=== PATIENT | female | born 1940 | race Caucasian/White ===

== ENCOUNTER 2016-04-12 12:51 | Inpatient (IN) | payer MEDICARE, MEDICAID ==
[~2016-04-12] VITALS: Ht 157.5 cm; Wt 58.4 kg
[~2016-04-12 12:51] MED LIST: CALC-24 OR; CYCL1TAB18 OR; DEXL60CA3 PO; LACT10SO44 PO; METO-5 PO; NITR-48 PO; OXY20CRT PO; OXY5T PO; SPIR100T PO; URSO300C7 PO
[2016-04-12] MEDS ORDERED: SODIUM CHLORIDE 0.9% 1,000 ML IVB ONE (13:25)
[2016-04-12 14:13] LABS: Basophils # (auto) 0.1 uL; Basophils % (auto) 0.6 % (0.0-2.0); Eosinophils # (auto) 0.2 uL; Eosinophils % (auto) 1.5 % (0.0-7.0); Hematocrit 34.8 % (36.0-46.0); Hemoglobin 11.3 g/dL (12.2-16.2); Lymphocytes % (auto) 7.9 % (10.0-50.0); Mean Corpuscular Hemoglobin 29.1 pg (28.0-32.0); Mean Corpuscular Hgb Conc. 32.3 g/dL (32.0-36.0); Mean Corpuscular Volume 90.1 fL (80.0-100.0); Mean Platelet Volume 9.3 fL (7.4-10.4); Monocytes # (auto) 1.2 uL; Neutrophils # (auto) 10.4 uL; Platelet Count (auto) 203 10^3/uL (140-450); Red Cell Distribution Width 15.1 % (11.6-16.0); White Blood Cell 12.9 10^3/uL (4.4-10.8)
[2016-04-12 14:23] LABS: Partial Thromboplastin Time 24.5 sec (22.64-33.71); Prothrombin Time 10.3 sec (9.37-12.3)
[2016-04-12 14:29] LABS: Urine RBC None Seen /hpf (0 - 4)
[2016-04-12 14:38] LABS: Urine Bilirubin Negative (Negative); Urine Blood Negative /uL (Negative); Urine Color Yellow (Yellow); Urine Glucose Normal (Normal); Urine Ketone Negative (Negative); Urine Nitrite Negative (Negative); Urine Urobilinogen Normal (Negative); Urine pH 5.5 (5.0-8.0)
[2016-04-12 15:13] LABS: Albumin 2.9 g/dL (3.4-5.0); BUN/Creatinine Ratio 28.2; Bilirubin, Total 0.6 mg/dL (0.2-1.0); Calcium 8.2 mg/dL (8.5-10.1); Magnesium 2.1 mg/dL (1.6-2.6); Potassium 3.7 mmol/L (3.5-5.1); Total Protein 6.2 g/dL (6.4-8.2)
[2016-04-12] MEDS ORDERED: KETOROLAC TROMETH 30 MG/ML 1ML VIAL IV ONE (16:00)
[2016-04-12] MEDS ORDERED: AZITHROMYCIN 500MG/D5W 250ML 250 ML IV ONE (16:00)
[2016-04-12 16:22] LABS: B-Type Natriuretic Peptide 56.92 pg/mL (0-100)
[2016-04-12] MEDS ORDERED: ALBUTEROL SULF 2.5 MG/0.5ML(0.5%) NEB SOLN NEB PRN (16:45)
[2016-04-12] MEDS ORDERED: HYDROcodone-ACET 5/325MG TAB PO PRN (16:45)
[2016-04-12] MEDS ORDERED: NITROGLYCERIN 0.4 MG SL TAB SL PRN (16:45)
[2016-04-12] MEDS ORDERED: ACETAMINOPHEN 500 MG TAB PO PRN (16:45)
[2016-04-12] MEDS ORDERED: OSELTAMIVIR 75 MG CAP PO ONE (16:45)
[2016-04-12] MEDS ORDERED: MORPHINE SULF INJ 2 MG/ML SYRINGE 1ML IV PRN ×2 (16:45→16:46)
[2016-04-12] MEDS ORDERED: PROMETHAZINE HCL 25 MG/ML 1ML IV PRN (16:45)
[2016-04-12] MEDS ORDERED: LORazepam 0.5 MG TAB PO PRN (16:45)
[2016-04-12] MEDS: SODIUM CHLORIDE 0.9% 1,000 ML IV SCH (16:52)
[2016-04-12] MEDS ORDERED: OSELTAMIVIR 30 MG CAP PO ONE (17:00)
[2016-04-12] MEDS ORDERED: VANCOMYCIN PER PHARMACY 0 MG IV SCH (17:15)
[2016-04-12] MEDS ORDERED: VANCOMYCIN 1GM/250ML D5W 250 ML IV ONE (17:15)
[2016-04-12] MEDS ORDERED: IOHEXOL 350 MG/ML 100ML IJ ONE (17:31)
[2016-04-12] MEDS: VANCOMYCIN 1GM/250ML D5W 250 ML IV SCH (18:34)
[2016-04-12] MEDS ORDERED: OXYCODONE HCL 5MG TAB PO PRN (19:15)
[2016-04-12] MEDS: ALBUTEROL SULF 2.5 MG/0.5ML(0.5%) NEB SOLN NEB SCH (19:30)
[2016-04-12] MEDS: IPRATROPIUM BROM 0.5 MG/2.5ML INH SOL NEB SCH (19:30)
[2016-04-12 21:10] VITALS: BP 117/94
[2016-04-12 22:00] VITALS: BP 117/94
[2016-04-12] MEDS: MORPHINE SULF 30 mg ER tab PO SCH (22:36)
[2016-04-13] MEDS: HYDROmorphone HCL 2 MG/ML VL IV PRN ×4 (00:07→21:15)
[2016-04-13 03:07] VITALS: BP 123/102
[2016-04-13] MEDS: SODIUM CHLORIDE 0.9% 1,000 ML IV SCH ×2 (05:38→18:55)
[2016-04-13] MEDS: MORPHINE SULF 30 mg ER tab PO SCH ×3 (05:45→21:58)
[2016-04-13 05:49] VITALS: BP 117/63
[2016-04-13] MEDS ORDERED: OSELTAMIVIR 30 MG CAP PO SCH (06:00)
[2016-04-13 06:28] LABS: Basophils # (auto) 0 uL; Basophils % (auto) 0.4 % (0.0-2.0); Eosinophils # (auto) 0.2 uL; Eosinophils % (auto) 2.3 % (0.0-7.0); Hematocrit 31.4 % (36.0-46.0); Hemoglobin 10.2 g/dL (12.2-16.2); Lymphocytes % (auto) 12.8 % (10.0-50.0); Mean Corpuscular Hgb Conc. 32.5 g/dL (32.0-36.0); Mean Corpuscular Volume 92.4 fL (80.0-100.0); Mean Platelet Volume 9.8 fL (7.4-10.4); Monocytes # (auto) 0.6 uL; Monocytes % (auto) 8.2 % (0.0-12.0); Neutrophils # (auto) 5.9 uL; Neutrophils % (auto) 76.3 % (37.0-80.0); Platelet Count (auto) 172 10^3/uL (140-450); Red Cell Distribution Width 15.3 % (11.6-16.0); White Blood Cell 7.7 10^3/uL (4.4-10.8)
[2016-04-13] MEDS: IPRATROPIUM BROM 0.5 MG/2.5ML INH SOL NEB SCH ×4 (06:38→18:22)
[2016-04-13] MEDS: ALBUTEROL SULF 2.5 MG/0.5ML(0.5%) NEB SOLN NEB SCH ×4 (06:38→18:22)
[2016-04-13 06:57] LABS: Albumin 2.3 g/dL (3.4-5.0); BUN/Creatinine Ratio 25.4; Bilirubin, Total 0.6 mg/dL (0.2-1.0); Calcium 7.8 mg/dL (8.5-10.1); Potassium 3.7 mmol/L (3.5-5.1); Total Protein 5.3 g/dL (6.4-8.2)
[2016-04-13 09:14] VITALS: BP 125/64
[2016-04-13] MEDS ORDERED: AZITHROMYCIN 500MG/D5W 250ML 250 ML IV SCH (10:00)
[2016-04-13 12:21] VITALS: BP 109/63
[2016-04-13] MEDS: OSELTAMIVIR 30MG/2ML ORAL SUSP PO SCH ×2 (13:51→21:58)
[2016-04-13 17:25] VITALS: BP 123/66
[2016-04-13] MEDS: VANCOMYCIN 1GM/250ML D5W 250 ML IV SCH (17:37)
[2016-04-13 21:56] VITALS: BP 132/64
[2016-04-14] MEDS: IPRATROPIUM BROM 0.5 MG/2.5ML INH SOL NEB SCH ×2 (00:15→06:07)
[2016-04-14] MEDS: ALBUTEROL SULF 2.5 MG/0.5ML(0.5%) NEB SOLN NEB SCH ×3 (00:16→11:15)
[2016-04-14] MEDS: HYDROmorphone HCL 2 MG/ML VL IV PRN ×2 (04:17→10:39)
[2016-04-14 05:00] VITALS: BP 116/68
[2016-04-14] MEDS: MORPHINE SULF 30 mg ER tab PO SCH (06:24)
[2016-04-14 09:00] VITALS: BP 130/79
[2016-04-14] MEDS: SODIUM CHLORIDE 0.9% 1,000 ML IV SCH (09:43)
[2016-04-14] MEDS ORDERED: OSELTAMIVIR 30 MG CAP PO SCH (10:00)
[2016-04-14] MEDS ORDERED: AZITHROMYCIN 250 MG TAB PO SCH (10:00)
[2016-04-14] MEDS ORDERED: OSELTAMIVIR 75 MG CAP PO SCH (10:00)
[2016-04-14 12:16] VITALS: BP 136/75
== END 2016-04-14 14:15 | disposition home or self-care (01) | DRG 871 ==
LOC: EDBD 12:51 → ER 13:01 → TELE 13:02 → TELE-CENTR 21:10
PROVIDERS: ADMIT Internal Medicine; ATTEND Internal Medicine Pulmonary Disease
DX: A41.9 Sepsis, unspecified organism (principal); J18.9 Pneumonia, unspecified organism; J44.0 Chronic obstructive pulmonary disease with (acute) lower respiratory infection; C34.90 Malignant neoplasm of unspecified part of unspecified bronchus or lung; F11.20 Opioid dependence, uncomplicated; J44.1 Chronic obstructive pulmonary disease with (acute) exacerbation; J98.11 Atelectasis; L03.115 Cellulitis of right lower limb; Z82.61 Family history of arthritis; I50.9 Heart failure, unspecified; D50.9 Iron deficiency anemia, unspecified; D53.9 Nutritional anemia, unspecified; D63.8 Anemia in other chronic diseases classified elsewhere; E03.9 Hypothyroidism, unspecified; F32.9 Major depressive disorder, single episode, unspecified; F41.9 Anxiety disorder, unspecified; G89.29 Other chronic pain; J20.9 Acute bronchitis, unspecified; M10.9 Gout, unspecified; I11.0 Hypertensive heart disease with heart failure; M19.90 Unspecified osteoarthritis, unspecified site; M54.9 Dorsalgia, unspecified; M34.9 Systemic sclerosis, unspecified; M41.9 Scoliosis, unspecified; M48.06 Spinal stenosis, lumbar region; Z80.3 Family history of malignant neoplasm of breast; Z82.3 Family history of stroke; Z82.49 Family history of ischemic heart disease and other diseases of the circulatory system; Z86.14 Personal history of Methicillin resistant Staphylococcus aureus infection; Z86.711 Personal history of pulmonary embolism; Z88.6 Allergy status to analgesic agent; Z88.1 Allergy status to other antibiotic agents; Z88.5 Allergy status to narcotic agent; Z88.8 Allergy status to other drugs, medicaments and biological substances; Z90.49 Acquired absence of other specified parts of digestive tract; Z90.710 Acquired absence of both cervix and uterus; Z98.890 Other specified postprocedural states
CPT/HCPCS: 36415; 51702; 71010; 71250; 71275; 72128; 72131; 80053; 81001; 82550; 82962; 83605; 83735; 83880; 84484; 85025; 85049; 85379; 85610; 85652; 85730; 86141; 87040; 87081; 87086; 93005; 94640; 96361; 96365; 96366; 96375; G0434; G9035; J1885

== ENCOUNTER 2016-04-16 10:33 | Inpatient (IN) | payer MEDICARE, MEDICAID ==
[~2016-04-16] VITALS: Ht 152.4 cm; Wt 55.9 kg
[~2016-04-16 10:33] MED LIST changes: -NITR-48 PO; -OXY20CRT PO
[2016-04-16] MEDS ORDERED: SODIUM CHLORIDE 0.9% 1,000 ML IVB ONE (11:12)
[2016-04-16] MEDS ORDERED: ONDANSETRON HCL 4 MG/2 ML VIAL IV ONE (11:15)
[2016-04-16 11:48] LABS: Hematocrit 37.6 % (36.0-46.0)
[2016-04-16 11:51] LABS: Basophils # (auto) 0 uL; Basophils % (auto) 0.2 % (0.0-2.0); Eosinophils # (auto) 0.1 uL; Eosinophils % (auto) 0.9 % (0.0-7.0); Hemoglobin 12.1 g/dL (12.2-16.2); Lymphocytes # (auto) 0.5 uL; Lymphocytes % (auto) 3.8 % (10.0-50.0); Mean Corpuscular Hemoglobin 29.3 pg (28.0-32.0); Mean Corpuscular Hgb Conc. 32.1 g/dL (32.0-36.0); Mean Corpuscular Volume 91.1 fL (80.0-100.0); Mean Platelet Volume 9.7 fL (7.4-10.4); Monocytes # (auto) 0.9 uL; Monocytes % (auto) 7.6 % (0.0-12.0); Neutrophils # (auto) 10.9 uL; Neutrophils % (auto) 87.5 % (37.0-80.0); Platelet Count (auto) 227 10^3/uL (140-450); Red Cell Distribution Width 15.3 % (11.6-16.0); White Blood Cell 12.4 10^3/uL (4.4-10.8)
[2016-04-16 12:00] LABS: Amylase 23 U/L (25-115)
[2016-04-16 12:03] LABS: Albumin 3.1 g/dL (3.4-5.0); BUN/Creatinine Ratio 18.2; Bilirubin, Total 0.4 mg/dL (0.2-1.0); Calcium 8.5 mg/dL (8.5-10.1); Potassium 4.3 mmol/L (3.5-5.1); Total Protein 6.2 g/dL (6.4-8.2)
[2016-04-16 12:08] LABS: INR 1.04 (0.9-1.15); Partial Thromboplastin Time 21.2 sec (22.64-33.71); Prothrombin Time 10.7 sec (9.37-12.3)
[2016-04-16] MEDS ORDERED: OXYCODONE HCL 5MG TAB PO PRN (13:30)
[2016-04-16] MEDS ORDERED: PANTOPRAZOLE SODIUM 40 MG/10 ML VIAL IV ONE (13:30)
[2016-04-16] MEDS: oxyCODONE ER 20 MG TAB PO SCH ×2 (13:56→21:35)
[2016-04-16 16:24] VITALS: BP 123/79
[2016-04-16] MEDS: LACTULOSE 20Gm/30ML SOLN PO SCH (18:00)
[2016-04-16 22:00] VITALS: BP 119/79
[2016-04-16 22:20] LABS: Urine Bilirubin Negative (Negative); Urine Blood Negative /uL (Negative); Urine Color Yellow (Yellow); Urine Glucose Normal (Normal); Urine Ketone TRACE (Negative); Urine RBC 9 /hpf (0 - 4); Urine Squamous Epithelial Cell FEW /hpf (<5); Urine Urobilinogen Normal (Negative); Urine WBC Clumps PRESENT /hpf (None Seen); Urine pH 6.5 (5.0-8.0)
[2016-04-16 22:22] LABS: Urine Nitrite POSITIVE (Negative)
[2016-04-17 05:30] VITALS: BP 121/67
[2016-04-17] MEDS: oxyCODONE ER 20 MG TAB PO SCH (05:37)
[2016-04-17] MEDS: LACTULOSE 20Gm/30ML SOLN PO SCH ×3 (05:42→12:00)
[2016-04-17 05:54] LABS: Basophils # (auto) 0 uL; Basophils % (auto) 0.3 % (0.0-2.0); Eosinophils # (auto) 0.3 uL; Eosinophils % (auto) 3.9 % (0.0-7.0); Hematocrit 31.2 % (36.0-46.0); Hemoglobin 10.1 g/dL (12.2-16.2); Lymphocytes # (auto) 1.1 uL; Lymphocytes % (auto) 16.8 % (10.0-50.0); Mean Corpuscular Hemoglobin 29.3 pg (28.0-32.0); Mean Corpuscular Hgb Conc. 32.4 g/dL (32.0-36.0); Mean Corpuscular Volume 90.4 fL (80.0-100.0); Mean Platelet Volume 9.2 fL (7.4-10.4); Monocytes # (auto) 0.7 uL; Monocytes % (auto) 10.5 % (0.0-12.0); Neutrophils # (auto) 4.4 uL; Neutrophils % (auto) 68.5 % (37.0-80.0); Platelet Count (auto) 196 10^3/uL (140-450); Red Cell Distribution Width 15.1 % (11.6-16.0); White Blood Cell 6.4 10^3/uL (4.4-10.8)
[2016-04-17 09:00] VITALS: BP 152/63
[2016-04-17 09:17] VITALS: BP 124/73
[2016-04-17] MEDS ORDERED: PANTOPRAZOLE SODIUM 40 MG/10 ML VIAL IV SCH (10:00)
[2016-04-17] MEDS ORDERED: AZITHROMYCIN 250 MG TAB PO SCH (10:00)
== END 2016-04-17 13:15 | disposition home or self-care (01) | DRG 389 ==
LOC: ER 10:40 → OVERFLOW 10:41 → WEST WING 14:44
PROVIDERS: ADMIT Internal Medicine; ATTEND Internal Medicine
DX: K56.41 Fecal impaction (principal); I50.42 Chronic combined systolic (congestive) and diastolic (congestive) heart failure; F11.20 Opioid dependence, uncomplicated; N39.0 Urinary tract infection, site not specified; I11.0 Hypertensive heart disease with heart failure; F41.9 Anxiety disorder, unspecified; G89.29 Other chronic pain; I48.0 Paroxysmal atrial fibrillation; K74.60 Unspecified cirrhosis of liver; M19.90 Unspecified osteoarthritis, unspecified site; F32.9 Major depressive disorder, single episode, unspecified; M48.06 Spinal stenosis, lumbar region; M54.9 Dorsalgia, unspecified; Z88.1 Allergy status to other antibiotic agents; Z88.5 Allergy status to narcotic agent; Z88.8 Allergy status to other drugs, medicaments and biological substances; Z80.9 Family history of malignant neoplasm, unspecified; Z86.711 Personal history of pulmonary embolism; Z90.49 Acquired absence of other specified parts of digestive tract; Z86.718 Personal history of other venous thrombosis and embolism; Z87.01 Personal history of pneumonia (recurrent); Z98.890 Other specified postprocedural states; Z90.710 Acquired absence of both cervix and uterus
CPT/HCPCS: 36415; 71020; 74176; 80053; 81001; 82140; 82150; 83605; 83690; 83735; 84443; 85025; 85049; 85610; 85730; 87040; 87081; 93005; 94761; 96361; 96374; 96375; C9113; J2405

== ENCOUNTER 2016-08-11 07:34 | Day surgery (SDC) | payer MEDICARE, MEDICAID ==
[2016-08-08 16:43] LABS: Basophils % (auto) 1.2 % (0.0-2.0); Eosinophils % (auto) 4.6 % (0.0-7.0); Hematocrit 36.3 % (36.0-46.0); Hemoglobin 11.7 g/dL (12.2-16.2); Lymphocytes % (auto) 22.1 % (10.0-50.0); Mean Corpuscular Hemoglobin 29.3 pg (28.0-32.0); Mean Corpuscular Hgb Conc. 32.1 g/dL (32.0-36.0); Mean Corpuscular Volume 91.1 fL (80.0-100.0); Monocytes % (auto) 10.9 % (0.0-12.0); Neutrophils % (auto) 61.2 % (37.0-80.0); Red Cell Distribution Width 17.8 % (11.6-16.0); White Blood Cell 5.4 10^3/uL (4.4-10.8)
[2016-08-08 16:44] LABS: INR 0.92 (0.9-1.15); Partial Thromboplastin Time 21.1 sec (22.64-33.71); Platelet Count (auto) 230 10^3/uL (140-450); Prothrombin Time 9.9 sec (9.37-12.3)
[2016-08-08 16:45] LABS: Albumin 3.2 g/dL (3.4-5.0); BUN/Creatinine Ratio 23.7; Bilirubin, Total 0.2 mg/dL (0.2-1.0); Calcium 9.1 mg/dL (8.5-10.1); Potassium 4.1 mmol/L (3.5-5.1); Total Protein 6.9 g/dL (6.4-8.2)
[~2016-08-11] VITALS: Ht 152.4 cm; Wt 54.4 kg
[~2016-08-11 07:34] MED LIST changes: +ALB5IS NEB; +ATEN-60 PO; -CALC-24 OR; +CALC1TAB64 PO; +CEFU500T43 PO; +ESZO3TAB53 PO; +FURO80TA PO; -METO-5 PO; +OXYC60TA8 PO; +SACC250C PO; -URSO300C7 PO; +URSO300C9 PO
[2016-08-11] MEDS ORDERED: MIDAZOLAM HCL 1MG/1ML-2 ML VIAL ONE (08:22)
[2016-08-11] MEDS ORDERED: PROPOFOL 10 MG/ML 20 ML IV ONE (08:22)
[2016-08-11] MEDS ORDERED: DEXAMETHASONE SOD PHOS 10MG/1ML VIAL INJ ONE (08:22)
[2016-08-11] MEDS ORDERED: fentaNYL CITRATE 100 MCG/2 ML VL ONE (08:22)
[2016-08-11] MEDS ORDERED: MEPERIDINE HCL (50 MG/ML) 1 ML VIAL ONE (08:23)
[2016-08-11] MEDS ORDERED: MORPHINE SULF INJ 2 MG/ML SYRINGE 1ML IV PRN (09:15)
[2016-08-11] MEDS ORDERED: ONDANSETRON HCL 4 MG/2 ML VIAL IV ONE (09:15)
[2016-08-11] MEDS ORDERED: KETOROLAC TROMETH 30 MG/ML 1ML VIAL IV ONE (09:15)
[2016-08-11] MEDS ORDERED: hydrALAZINE HCL 20 MG/ML VL IV PRN (09:15)
[2016-08-11] MEDS ORDERED: MIDAZOLAM HCL 1MG/1ML-2 ML VIAL IV PRN (09:15)
[2016-08-11] MEDS ORDERED: ePHEDrine SULFATE 50 MG/ML AMP IV PRN (09:15)
[2016-08-11] MEDS ORDERED: HYDROmorphone HCL 2 MG/ML VL IV PRN (09:15)
[2016-08-11] MEDS ORDERED: LABETALOL HCL 5 MG/ML 4ML SYRINGE IV PRN (09:15)
[2016-08-11 09:59] VITALS: BP 148/76
[2016-09-23] MEDS ORDERED: SULF-92 PO (13:39)
[2016-09-23] MEDS ORDERED: SACC250C PO (13:39)
[2016-09-23] MEDS ORDERED: MET500T PO (13:39)
== END 2016-08-11 10:03 | disposition home or self-care (01) ==
LOC: GI 07:34
PROVIDERS: ATTEND Internal Medicine Gastroenterology
DX: K44.9 Diaphragmatic hernia without obstruction or gangrene (principal); T18.3XXA Foreign body in small intestine, initial encounter; I50.9 Heart failure, unspecified; J44.9 Chronic obstructive pulmonary disease, unspecified; I26.99 Other pulmonary embolism without acute cor pulmonale; Z90.710 Acquired absence of both cervix and uterus; F41.9 Anxiety disorder, unspecified
CPT/HCPCS: 36415; 43235; 80053; 82105; 85025; 85610; 85730; J1100; J2175; J2250; J2704; J3010; J7030

== ENCOUNTER 2016-09-19 07:45 | Inpatient (IN) | payer MEDICARE, MEDICAID ==
[~2016-09-19] VITALS: Ht 157.5 cm; Wt 62.1 kg
[2016-09-19 08:29] LABS: CONDITION Y; Hematocrit 37.5 % (36.0-46.0); Hemoglobin 12.6 g/dL (12.2-16.2); Mean Corpuscular Hemoglobin 30.5 pg (28.0-32.0); Mean Corpuscular Hgb Conc. 33.7 g/dL (32.0-36.0); Mean Corpuscular Volume 90.5 fL (80.0-100.0); Platelet Count (auto) 237 10^3/uL (140-450); Red Cell Distribution Width 15.3 % (11.6-16.0); SUSPECT SEE PRINTOUT; White Blood Cell 20.3 10^3/uL (4.4-10.8)
[2016-09-19] MEDS ORDERED: SODIUM CHLORIDE 0.9% 500 ML IVB ONE (08:29)
[2016-09-19 08:37] LABS: Myelocytes % 0; Promyelocytes % 0; Reactive Lymphocytes 0
[2016-09-19 08:53] LABS: BUN/Creatinine Ratio 23.9; Bilirubin, Total 0.7 mg/dL (0.2-1.0); Calcium 8.9 mg/dL (8.5-10.1); Potassium 3.7 mmol/L (3.5-5.1); Total Protein 6.7 g/dL (6.4-8.2)
[2016-09-19 08:57] LABS: Amylase 15 U/L (25-115)
[2016-09-19 10:41] LABS: Metamyelocytes % 1; Platelet Estimate Adequate
[2016-09-19] MEDS ORDERED: MORPHINE SULF INJ 2 MG/ML SYRINGE 1ML IV PRN ×2 (11:45)
[2016-09-19] MEDS ORDERED: HYDROcodone-ACET 5/325MG TAB PO PRN (11:45)
[2016-09-19] MEDS ORDERED: TEMAZEPAM 15 MG CAP PO PRN (11:45)
[2016-09-19] MEDS ORDERED: LORazepam 0.5 MG TAB PO PRN (11:45)
[2016-09-19] MEDS ORDERED: NITROGLYCERIN 0.4 MG SL TAB SL PRN (11:45)
[2016-09-19] MEDS ORDERED: ACETAMINOPHEN 500 MG TAB PO PRN (11:45)
[2016-09-19] MEDS: SODIUM CHLORIDE 0.9% 1,000 ML IV SCH ×2 (12:00→21:58)
[2016-09-19] MEDS: ALBUTEROL SULF 2.5 MG/0.5ML(0.5%) NEB SOLN NEB SCH ×2 (12:00→18:00)
[2016-09-19] MEDS: metroNIDAZOLE 500MG/100ML 100 ML IV SCH ×2 (12:11→18:28)
[2016-09-19] MEDS ORDERED: ATENOLOL 25 MG TAB PO ONE (12:15)
[2016-09-19] MEDS: ENOXAPARIN SOD 40 MG/0.4 ML SYRINGE SC SCH (12:32)
[2016-09-19] MEDS: PROMETHAZINE HCL 25 MG/ML 1ML IV PRN (12:33)
[2016-09-19] MEDS ORDERED: HYDROmorphone HCL 2 MG/ML VL IV PRN (12:45)
[2016-09-19] MEDS: ERTAPENEM SOD INJ 1 GM in SODIUM CHL 0.9% 50 ML IV SCH (13:11)
[2016-09-19] MEDS ORDERED: OXYCODONE HCL 60 MG PO SCH (14:00)
[2016-09-19] MEDS: oxyCODONE ER 20 MG TAB PO SCH ×2 (14:00→22:00)
[2016-09-19 17:52] VITALS: BP 131/66
[2016-09-19] MEDS: URSODIOL 300 MG PO SCH (18:00)
[2016-09-19] MEDS: OXYCODONE HCL 5MG TAB PO PRN (18:29)
[2016-09-19] MEDS: ATENOLOL 25 MG TAB PO SCH (21:57)
[2016-09-19 22:00] VITALS: BP 156/76
[2016-09-19] MEDS: LACTULOSE 20Gm/30ML SOLN PO SCH (22:00)
[2016-09-19] MEDS ORDERED: ESZOPICLONE PO SCH (22:00)
[2016-09-19] MEDS ORDERED: ATENOLOL 25 MG TAB PO SCH (22:00)
[2016-09-20] MEDS: metroNIDAZOLE 500MG/100ML 100 ML IV SCH ×4 (00:45→19:09)
[2016-09-20 05:00] VITALS: BP 146/81
[2016-09-20] MEDS: oxyCODONE ER 20 MG TAB PO SCH ×3 (05:05→22:04)
[2016-09-20 06:23] LABS: Basophils # (auto) 0 uL; CONDITION Y; Eosinophils # (auto) 0 uL; Eosinophils % (auto) 0.1 % (0.0-7.0); Hematocrit 34.9 % (36.0-46.0); Hemoglobin 11.9 g/dL (12.2-16.2); Lymphocytes # (auto) 0.7 uL; Lymphocytes % (auto) 4.8 % (10.0-50.0); Mean Corpuscular Hemoglobin 31.5 pg (28.0-32.0); Mean Corpuscular Hgb Conc. 34.1 g/dL (32.0-36.0); Mean Corpuscular Volume 92.2 fL (80.0-100.0); Mean Platelet Volume 9.2 fL (7.4-10.4); Monocytes # (auto) 1.2 uL; Monocytes % (auto) 8.3 % (0.0-12.0); Neutrophils # (auto) 12.2 uL; Neutrophils % (auto) 86.8 % (37.0-80.0); Platelet Count (auto) 198 10^3/uL (140-450); Red Cell Distribution Width 15.4 % (11.6-16.0)
[2016-09-20 06:39] LABS: Albumin 2.3 g/dL (3.4-5.0); BUN/Creatinine Ratio 24.5; Calcium 8.1 mg/dL (8.5-10.1); Potassium 3.8 mmol/L (3.5-5.1)
[2016-09-20 06:41] LABS: Bilirubin, Total 0.4 mg/dL (0.2-1.0); Total Protein 5.8 g/dL (6.4-8.2)
[2016-09-20] MEDS: SODIUM CHLORIDE 0.9% 1,000 ML IV SCH ×2 (07:55→17:35)
[2016-09-20] MEDS: ALBUTEROL SULF 2.5 MG/0.5ML(0.5%) NEB SOLN NEB SCH ×4 (08:32→19:43)
[2016-09-20 09:00] VITALS: BP 108/59
[2016-09-20 09:21] VITALS: BP 146/81
[2016-09-20] MEDS: CALCIUM W/VIT D (600MG/400IU) TAB PO SCH (09:21)
[2016-09-20] MEDS: LACTULOSE 20Gm/30ML SOLN PO SCH ×2 (09:21→22:04)
[2016-09-20] MEDS: PANTOPRAZOLE 40 MG TAB PO SCH (09:22)
[2016-09-20] MEDS: ENOXAPARIN SOD 40 MG/0.4 ML SYRINGE SC SCH (09:23)
[2016-09-20] MEDS: ATENOLOL 25 MG TAB PO SCH ×2 (09:23→21:59)
[2016-09-20] MEDS ORDERED: PATIENTS OWN MEDICATION (Dexlansoprazole (Dexilant) 60 MG) PO SCH (10:00)
[2016-09-20] MEDS: ERTAPENEM SOD INJ 1 GM in SODIUM CHL 0.9% 50 ML IV SCH (10:03)
[2016-09-20 13:00] VITALS: BP 107/61
[2016-09-20 17:00] VITALS: BP 129/59
[2016-09-20] MEDS: URSODIOL 300 MG PO SCH (18:00)
[2016-09-20 22:00] VITALS: BP 92/52
[2016-09-21] MEDS: metroNIDAZOLE 500MG/100ML 100 ML IV SCH ×5 (00:01→23:46)
[2016-09-21] MEDS: ALBUTEROL SULF 2.5 MG/0.5ML(0.5%) NEB SOLN NEB SCH ×4 (01:10→20:00)
[2016-09-21 06:17] VITALS: BP 110/67
[2016-09-21 07:31] VITALS: BP 133/76
[2016-09-21] MEDS: oxyCODONE ER 20 MG TAB PO SCH ×3 (07:44→21:28)
[2016-09-21] MEDS: PROMETHAZINE HCL 25 MG/ML 1ML IV PRN (07:55)
[2016-09-21 09:00] VITALS: BP 133/76
[2016-09-21] MEDS: LACTULOSE 20Gm/30ML SOLN PO SCH ×2 (10:00→21:28)
[2016-09-21] MEDS: ERTAPENEM SOD INJ 1 GM in SODIUM CHL 0.9% 50 ML IV SCH (10:30)
[2016-09-21] MEDS: PANTOPRAZOLE 40 MG TAB PO SCH (10:31)
[2016-09-21] MEDS: CALCIUM W/VIT D (600MG/400IU) TAB PO SCH (10:31)
[2016-09-21] MEDS: ENOXAPARIN SOD 40 MG/0.4 ML SYRINGE SC SCH (10:31)
[2016-09-21] MEDS: ATENOLOL 25 MG TAB PO SCH ×2 (10:32→21:28)
[2016-09-21] MEDS: SODIUM CHLORIDE 0.9% 1,000 ML IV SCH ×2 (12:04→21:28)
[2016-09-21 13:00] VITALS: BP 116/66
[2016-09-21 17:00] VITALS: BP 98/75
[2016-09-21] MEDS: URSODIOL 300 MG PO SCH (17:17)
[2016-09-21 21:04] VITALS: BP 137/91
[2016-09-22] MEDS ORDERED: EZ-GAS II GRANULES (RADIOLOGY USE) PO ONE (00:23)
[2016-09-22] MEDS: ALBUTEROL SULF 2.5 MG/0.5ML(0.5%) NEB SOLN NEB SCH ×4 (01:21→19:57)
[2016-09-22] MEDS: OXYCODONE HCL 5MG TAB PO PRN (02:39)
[2016-09-22 05:00] VITALS: BP 139/74
[2016-09-22 05:12] LABS: Urine Bilirubin Negative (Negative); Urine Color Yellow (Yellow); Urine Glucose Normal (Normal); Urine Ketone Negative (Negative); Urine Mucus FEW (None Seen); Urine Nitrite Negative (Negative); Urine RBC 13 /hpf (0 - 4); Urine Squamous Epithelial Cell FEW /hpf (<5); Urine Urobilinogen Normal (Negative); Urine pH 5.5 (5.0-8.0)
[2016-09-22 05:13] LABS: Urine Blood 1+ /uL (Negative)
[2016-09-22] MEDS: metroNIDAZOLE 500MG/100ML 100 ML IV SCH ×2 (05:50→12:29)
[2016-09-22] MEDS: oxyCODONE ER 20 MG TAB PO SCH ×3 (06:00→21:51)
[2016-09-22 06:22] LABS: Basophils # (auto) 0 uL; Basophils % (auto) 0.3 % (0.0-2.0); CONDITION Y; Eosinophils # (auto) 0.1 uL; Eosinophils % (auto) 1.4 % (0.0-7.0); Hematocrit 33.4 % (36.0-46.0); Lymphocytes # (auto) 0.6 uL; Lymphocytes % (auto) 10.4 % (10.0-50.0); Mean Corpuscular Hemoglobin 30.6 pg (28.0-32.0); Mean Corpuscular Volume 92.7 fL (80.0-100.0); Monocytes # (auto) 0.4 uL; Monocytes % (auto) 8.2 % (0.0-12.0); Neutrophils # (auto) 4.3 uL; Neutrophils % (auto) 79.7 % (37.0-80.0); Platelet Count (auto) 177 10^3/uL (140-450); Red Cell Distribution Width 15.2 % (11.6-16.0); White Blood Cell 5.4 10^3/uL (4.4-10.8)
[2016-09-22 08:00] VITALS: BP 135/76
[2016-09-22 09:16] VITALS: BP 135/76
[2016-09-22] MEDS: LACTULOSE 20Gm/30ML SOLN PO SCH ×2 (09:49→21:49)
[2016-09-22] MEDS: PANTOPRAZOLE 40 MG TAB PO SCH (09:50)
[2016-09-22] MEDS: ENOXAPARIN SOD 40 MG/0.4 ML SYRINGE SC SCH (09:50)
[2016-09-22] MEDS: ERTAPENEM SOD INJ 1 GM in SODIUM CHL 0.9% 50 ML IV SCH (09:50)
[2016-09-22] MEDS: CALCIUM W/VIT D (600MG/400IU) TAB PO SCH (09:50)
[2016-09-22] MEDS: ATENOLOL 25 MG TAB PO SCH ×2 (09:51→21:50)
[2016-09-22] MEDS: SODIUM CHLORIDE 0.9% 1,000 ML IV SCH (09:51)
[2016-09-22 13:00] VITALS: BP 130/60
[2016-09-22 17:00] VITALS: BP 130/59
[2016-09-22] MEDS: URSODIOL 300 MG PO SCH (17:20)
[2016-09-22] MEDS: SULFAMETHOX W/TRIMETH(800/160MG) DS TAB PO SCH (21:50)
[2016-09-22] MEDS: metroNIDAZOLE 500 MG TAB PO SCH (21:50)
[2016-09-22 22:00] VITALS: BP 126/67
[2016-09-23 05:00] VITALS: BP 131/70
[2016-09-23] MEDS: metroNIDAZOLE 500 MG TAB PO SCH ×2 (05:37→14:05)
[2016-09-23] MEDS: oxyCODONE ER 20 MG TAB PO SCH ×2 (05:38→14:05)
[2016-09-23 06:07] LABS: Basophils # (auto) 0 uL; Basophils % (auto) 0.7 % (0.0-2.0); CONDITION Y; Eosinophils # (auto) 0.1 uL; Eosinophils % (auto) 2.8 % (0.0-7.0); Hematocrit 33.6 % (36.0-46.0); Hemoglobin 11.5 g/dL (12.2-16.2); Lymphocytes # (auto) 0.6 uL; Lymphocytes % (auto) 14.5 % (10.0-50.0); Mean Corpuscular Hemoglobin 31.2 pg (28.0-32.0); Mean Corpuscular Hgb Conc. 34.1 g/dL (32.0-36.0); Mean Corpuscular Volume 91.3 fL (80.0-100.0); Mean Platelet Volume 9.4 fL (7.4-10.4); Monocytes # (auto) 0.5 uL; Monocytes % (auto) 11.1 % (0.0-12.0); Neutrophils % (auto) 70.9 % (37.0-80.0); Platelet Count (auto) 175 10^3/uL (140-450); Red Cell Distribution Width 15.4 % (11.6-16.0); White Blood Cell 4.3 10^3/uL (4.4-10.8)
[2016-09-23] MEDS: ALBUTEROL SULF 2.5 MG/0.5ML(0.5%) NEB SOLN NEB SCH ×3 (06:12→12:00)
[2016-09-23 06:20] LABS: Calcium 7.8 mg/dL (8.5-10.1); Magnesium 1.9 mg/dL (1.6-2.6)
[2016-09-23 06:23] LABS: BUN/Creatinine Ratio 12.5
[2016-09-23 08:00] VITALS: BP 131/84
[2016-09-23] MEDS ORDERED: URSODIOL 300 MG PO SCH (08:00)
[2016-09-23] MEDS: LACTULOSE 20Gm/30ML SOLN PO SCH (09:23)
[2016-09-23] MEDS: PANTOPRAZOLE 40 MG TAB PO SCH (09:24)
[2016-09-23] MEDS: CALCIUM W/VIT D (600MG/400IU) TAB PO SCH (09:25)
[2016-09-23] MEDS: SULFAMETHOX W/TRIMETH(800/160MG) DS TAB PO SCH (09:25)
[2016-09-23] MEDS: ENOXAPARIN SOD 40 MG/0.4 ML SYRINGE SC SCH (09:26)
[2016-09-23] MEDS: ATENOLOL 25 MG TAB PO SCH (09:26)
[2016-09-23 09:42] VITALS: BP 131/84
[2016-09-23] MEDS ORDERED: SODIUM CHLORIDE 0.9% 1,000 ML IV SCH (11:35)
[2016-09-23] MEDS ORDERED: MAGNESIUM OXIDE 400 MG TAB PO ONE (12:00)
[2016-09-23 13:00] VITALS: BP 125/69
[2016-09-23] MEDS ORDERED: MET500T PO (13:39)
[2016-09-23] MEDS ORDERED: SACC250C PO (13:39)
[2016-09-23] MEDS ORDERED: SULF-92 PO (13:39)
[2016-09-23 15:29] VITALS: BP 125/69
== END 2016-09-23 17:13 | disposition home or self-care (01) | DRG 372 ==
LOC: ER 07:45 → EDBD 07:45 → TELE 07:46 → TELE-WESTW 17:36
PROVIDERS: ADMIT Internal Medicine; ATTEND Internal Medicine
DX: A02.0 Salmonella enteritis (principal); E44.0 Moderate protein-calorie malnutrition; F11.20 Opioid dependence, uncomplicated; I50.32 Chronic diastolic (congestive) heart failure; N39.0 Urinary tract infection, site not specified; E78.5 Hyperlipidemia, unspecified; K21.9 Gastro-esophageal reflux disease without esophagitis; B95.2 Enterococcus as the cause of diseases classified elsewhere; E03.9 Hypothyroidism, unspecified; E86.0 Dehydration; I11.0 Hypertensive heart disease with heart failure; J44.9 Chronic obstructive pulmonary disease, unspecified; M54.9 Dorsalgia, unspecified; M19.90 Unspecified osteoarthritis, unspecified site; G89.29 Other chronic pain; I70.0 Atherosclerosis of aorta; K74.3 Primary biliary cirrhosis; D17.71 Benign lipomatous neoplasm of kidney; M32.9 Systemic lupus erythematosus, unspecified; D64.9 Anemia, unspecified; R73.9 Hyperglycemia, unspecified; Z16.21 Resistance to vancomycin; I95.9 Hypotension, unspecified; M34.9 Systemic sclerosis, unspecified; F41.9 Anxiety disorder, unspecified; K44.9 Diaphragmatic hernia without obstruction or gangrene; K74.60 Unspecified cirrhosis of liver; Z80.3 Family history of malignant neoplasm of breast; Z82.49 Family history of ischemic heart disease and other diseases of the circulatory system; Z86.711 Personal history of pulmonary embolism; Z90.49 Acquired absence of other specified parts of digestive tract; Z86.14 Personal history of Methicillin resistant Staphylococcus aureus infection; Z82.3 Family history of stroke; Z68.25 Body mass index [BMI] 25.0-25.9, adult; Z86.718 Personal history of other venous thrombosis and embolism; Z90.710 Acquired absence of both cervix and uterus; Z90.89 Acquired absence of other organs; Z80.9 Family history of malignant neoplasm, unspecified; Z82.61 Family history of arthritis; Z82.5 Family history of asthma and other chronic lower respiratory diseases; Z88.6 Allergy status to analgesic agent; Z88.1 Allergy status to other antibiotic agents; Z88.5 Allergy status to narcotic agent; Z88.8 Allergy status to other drugs, medicaments and biological substances
CPT/HCPCS: 36415; 71010; 74176; 80048; 80053; 81001; 82140; 82150; 83690; 83735; 85007; 85025; 85027; 85652; 87040; 87045; 87077; 87086; 87088; 87186; 87493; 87899; 93005; 94640; 96374; 96375; 99291; J1335; J3490

== ENCOUNTER → 2016-10-22 | Outpatient (CLI) | payer MEDICARE, MEDICAID ==
[~2016-10-22] MED LIST changes: +MET500T PO; +SULF-92 PO
== END | disposition home or self-care (01) ==
LOC: LAB 13:28
PROVIDERS: ATTEND Internal Medicine Gastroenterology
DX: R19.7 Diarrhea, unspecified (principal)
CPT/HCPCS: 87045; 87493; 87899

== ENCOUNTER 2016-10-27 07:27 | Day surgery (SDC) | payer MEDICARE, MEDICAID ==
[2016-10-23 14:32] LABS: Basophils # (auto) 0.1 uL; Basophils % (auto) 0.8 % (0.0-2.0); CONDITION Y; Eosinophils # (auto) 0.2 uL; Eosinophils % (auto) 1.8 % (0.0-7.0); Hematocrit 37.5 % (36.0-46.0); Hemoglobin 12.5 g/dL (12.2-16.2); Lymphocytes # (auto) 1.9 uL; Lymphocytes % (auto) 18.3 % (10.0-50.0); Mean Corpuscular Hemoglobin 30.9 pg (28.0-32.0); Mean Corpuscular Hgb Conc. 33.3 g/dL (32.0-36.0); Mean Corpuscular Volume 92.8 fL (80.0-100.0); Mean Platelet Volume 8.8 fL (7.4-10.4); Monocytes # (auto) 1.1 uL; Monocytes % (auto) 10.2 % (0.0-12.0); Neutrophils # (auto) 7.1 uL; Neutrophils % (auto) 68.9 % (37.0-80.0); Platelet Count (auto) 301 10^3/uL (140-450); Red Cell Distribution Width 15.6 % (11.6-16.0); White Blood Cell 10.4 10^3/uL (4.4-10.8)
[2016-10-23 14:51] LABS: INR 0.94 (0.9-1.15); Prothrombin Time 10.2 sec (9.37-12.3)
[2016-10-23 14:58] LABS: Urine Bilirubin Negative (Negative); Urine Blood Negative /uL (Negative); Urine Color Yellow (Yellow); Urine Glucose Normal (Normal); Urine Ketone Negative (Negative); Urine Nitrite Negative (Negative); Urine pH 5.5 (5.0-8.0)
[2016-10-23 14:59] LABS: Albumin 3.5 g/dL (3.4-5.0); BUN/Creatinine Ratio 19.7; Bilirubin, Total 0.4 mg/dL (0.2-1.0); Calcium 8.9 mg/dL (8.5-10.1); Potassium 4.2 mmol/L (3.5-5.1); Total Protein 7.9 g/dL (6.4-8.2)
[~2016-10-27] VITALS: Ht 152.4 cm; Wt 54.4 kg
[~2016-10-27 07:27] MED LIST changes: -CEFU500T43 PO; -MET500T PO; -SULF-92 PO
[2016-10-27] MEDS ORDERED: KETAMINE HCL 1 ML ONE (08:29)
[2016-10-27] MEDS ORDERED: fentaNYL CITRATE 100 MCG/2 ML VL ONE (08:31)
[2016-10-27] MEDS ORDERED: ALBUTEROL SULF 2.5 MG/0.5ML(0.5%) NEB SOLN NEB ONE (09:00)
[2016-10-27 09:31] VITALS: BP 120/65
[2016-10-27] MEDS ORDERED: PROPOFOL 10 MG/ML 20 ML IV ONE (11:43)
== END 2016-10-27 09:31 ==
LOC: GI 07:27
PROVIDERS: ATTEND Internal Medicine Gastroenterology
DX: K29.50 Unspecified chronic gastritis without bleeding (principal); K44.9 Diaphragmatic hernia without obstruction or gangrene; K22.8 Other specified diseases of esophagus; I50.9 Heart failure, unspecified; J44.9 Chronic obstructive pulmonary disease, unspecified; Z90.710 Acquired absence of both cervix and uterus; F41.9 Anxiety disorder, unspecified
CPT/HCPCS: 36415; 43239; 80053; 81003; 85025; 85610; 85730; 94640; J2704; J3010

== ENCOUNTER → 2016-11-03 | Outpatient (CLI) | payer MEDICARE, MEDICAID | END | disposition home or self-care (01) | LOC: LAB 13:20 | PROVIDERS: ATTEND Internal Medicine Gastroenterology | DX: R10.30 Lower abdominal pain, unspecified (principal) | CPT/HCPCS: 36415; 82565; 84520 ==

== ENCOUNTER → 2016-11-20 | Outpatient (CLI) | payer MEDICARE, MEDICAID ==
[2016-11-20 15:33] LABS: Urine Bilirubin Negative (Negative); Urine Blood Negative /uL (Negative); Urine Color Yellow (Yellow); Urine Glucose Normal (Normal); Urine Hyaline Cast FEW /lpf (0 - 2); Urine Ketone Negative (Negative); Urine Nitrite Negative (Negative); Urine RBC 1 /hpf (0 - 4); Urine Squamous Epithelial Cell FEW /hpf (<5); Urine Urobilinogen Normal (Negative)
== END | disposition home or self-care (01) ==
LOC: LAB 15:03
PROVIDERS: ATTEND Internal Medicine
DX: N39.0 Urinary tract infection, site not specified (principal)
CPT/HCPCS: 81001; 87086

== ENCOUNTER → 2017-02-27 | Outpatient (CLI) | payer MEDICARE, MEDICAID ==
[2017-02-27 10:13] LABS: Basophils # (auto) 0 uL; Basophils % (auto) 0.8 % (0.0-2.0); Eosinophils # (auto) 0.2 uL; Eosinophils % (auto) 3.6 % (0.0-7.0); Hematocrit 36.9 % (36.0-46.0); Hemoglobin 12.3 g/dL (12.2-16.2); Lymphocytes # (auto) 1.2 uL; Lymphocytes % (auto) 21.6 % (10.0-50.0); Mean Corpuscular Hemoglobin 31.6 pg (28.0-32.0); Mean Corpuscular Hgb Conc. 33.4 g/dL (32.0-36.0); Mean Corpuscular Volume 94.7 fL (80.0-100.0); Mean Platelet Volume 9.3 fL (6.9-10.8); Monocytes # (auto) 0.6 uL; Monocytes % (auto) 10.6 % (0.0-12.0); Neutrophils # (auto) 3.5 uL; Neutrophils % (auto) 63.4 % (37.0-80.0); Platelet Count (auto) 170 10^3/uL (140-450); Red Cell Distribution Width 14.7 % (11.8-14.3); White Blood Cell 5.6 10^3/uL (4.4-10.8)
[2017-02-27 10:28] LABS: INR 0.92 (0.9-1.15)
[2017-02-27 10:38] LABS: Albumin 3.3 g/dL (3.4-5.0); BUN/Creatinine Ratio 21.8; Bilirubin, Total 0.6 mg/dL (0.2-1.0); Calcium 8.9 mg/dL (8.5-10.1); Potassium 3.9 mmol/L (3.5-5.1); Total Protein 7.1 g/dL (6.4-8.2)
== END | disposition home or self-care (01) ==
LOC: LAB 09:28
PROVIDERS: ATTEND Internal Medicine Gastroenterology
DX: K74.69 Other cirrhosis of liver (principal); J44.9 Chronic obstructive pulmonary disease, unspecified; I11.0 Hypertensive heart disease with heart failure; I50.9 Heart failure, unspecified
CPT/HCPCS: 36415; 80053; 85025; 85610

== ENCOUNTER 2017-04-16 07:56 | Inpatient (IN) | payer MEDICARE, MEDICAID ==
[~2017-04-16] VITALS: Ht 152.4 cm; Wt 56.4 kg
[~2017-04-16 07:56] MED LIST changes: +LEVO500T21 PO; +PRE5T PO
[2017-04-16] MEDS ORDERED: CLINDAMYCIN 600MG IV 50 ML IV ONE (08:30)
[2017-04-16] MEDS ORDERED: LORazepam 2MG/ML-1ML VIAL IV ONE (08:30)
[2017-04-16 09:11] LABS: Basophils # (auto) 0.1 uL; Basophils % (auto) 0.6 % (0.0-2.0); Eosinophils # (auto) 0.1 uL; Eosinophils % (auto) 0.6 % (0.0-7.0); Hematocrit 34.7 % (36.0-46.0); Hemoglobin 11.4 g/dL (12.2-16.2); Lymphocytes # (auto) 1.6 uL; Lymphocytes % (auto) 9.1 % (10.0-50.0); Mean Corpuscular Hemoglobin 30.5 pg (28.0-32.0); Mean Corpuscular Hgb Conc. 32.7 g/dL (32.0-36.0); Mean Corpuscular Volume 93.1 fL (80.0-100.0); Monocytes # (auto) 1.5 uL; Monocytes % (auto) 8.1 % (0.0-12.0); Neutrophils # (auto) 14.8 uL; Neutrophils % (auto) 81.6 % (37.0-80.0); Nucleated Red Blood Cells % 0.2 %; Platelet Count (auto) 179 10^3/uL (140-450); Red Blood Cells 3.73 10^6/uL (4.0-5.20); Red Cell Distribution Width 15.2 % (11.8-14.3); White Blood Cell 18.1 10^3/uL (4.4-10.8)
[2017-04-16 09:30] LABS: Blood Alcohol < 3.0 mg/dL (0-5); Lipase 237 U/L (73-393)
[2017-04-16 09:33] LABS: Albumin 2.9 g/dL (3.4-5.0); BUN/Creatinine Ratio 23.9; Bilirubin, Total 0.7 mg/dL (0.2-1.0); Calcium 8.6 mg/dL (8.5-10.1); Total Protein 6.6 g/dL (6.4-8.2)
[2017-04-16] MEDS ORDERED: LORazepam 0.5 MG TAB PO PRN (11:15)
[2017-04-16] MEDS ORDERED: ACETAMINOPHEN 500 MG TAB PO PRN (11:15)
[2017-04-16] MEDS ORDERED: ERTAPENEM SOD INJ 1 GM in SODIUM CHL 0.9% 100 ML IV ONE (11:15)
[2017-04-16] MEDS ORDERED: VANCOMYCIN 1GM/250ML 250 ML IV ONE (11:15)
[2017-04-16] MEDS ORDERED: HYDROcodone-ACET 5/325MG TAB PO PRN (11:15)
[2017-04-16] MEDS ORDERED: HYDROmorphone HCL 2 MG/ML VL IV PRN (11:15)
[2017-04-16] MEDS ORDERED: VANCOMYCIN PER PHARMACY 0 MG IV SCH (11:15)
[2017-04-16] MEDS ORDERED: TEMAZEPAM 15 MG CAP PO PRN (11:15)
[2017-04-16] MEDS ORDERED: LACTULOSE 20Gm/30ML SOLN PO PRN (11:15)
[2017-04-16] MEDS ORDERED: PROMETHAZINE HCL 25 MG/ML 1ML IV PRN (11:15)
[2017-04-16] MEDS ORDERED: LABETALOL HCL 5 MG/ML ML 20ML VIAL IV PRN (11:15)
[2017-04-16] MEDS ORDERED: ASPirin 81 mg TAB PO ONE (11:30)
[2017-04-16 11:42] LABS: INR 0.92 (0.9-1.15); Partial Thromboplastin Time 23.6 sec (22.64-33.71)
[2017-04-16] MEDS ORDERED: PANTOPRAZOLE 40 MG TAB PO ONE (11:45)
[2017-04-16 11:54] LABS: Folate (Folic Acid) 18.6 ng/mL (5.38-24)
[2017-04-16] MEDS: SODIUM CHLORIDE 0.9% 1,000 ML IV SCH ×2 (13:03→20:32)
[2017-04-16] MEDS: ENOXAPARIN SOD 40 MG/0.4 ML SYRINGE SC SCH (13:03)
[2017-04-16] MEDS ORDERED: NITROGLYCERIN 0.4 MG SL TAB SL PRN (13:30)
[2017-04-16] MEDS ORDERED: OXYCODONE HCL 5MG TAB PO PRN (14:45)
[2017-04-16] MEDS: URSODIOL 300 MG PO SCH (18:00)
[2017-04-16] MEDS: CLINDAMYCIN 600MG IV 50 ML IV SCH ×2 (18:03→22:10)
[2017-04-16 20:00] VITALS: BP 119/51
[2017-04-16 22:00] VITALS: BP 119/51
[2017-04-16] MEDS ORDERED: ESZOPICLONE PO SCH (22:00)
[2017-04-16] MEDS: predniSONE 20 MG TAB PO SCH (22:09)
[2017-04-16] MEDS: oxyCODONE ER 20 MG TAB PO SCH (22:09)
[2017-04-16] MEDS: METOPROLOL TARTRATE 25 MG TAB PO SCH (22:10)
[2017-04-16] MEDS: LACTULOSE 20Gm/30ML SOLN PO SCH (22:10)
[2017-04-17 04:57] VITALS: BP 114/58
[2017-04-17] MEDS: CLINDAMYCIN 600MG IV 50 ML IV SCH ×3 (05:49→22:50)
[2017-04-17] MEDS: oxyCODONE ER 20 MG TAB PO SCH ×3 (05:50→22:50)
[2017-04-17 06:30] LABS: Basophils # (auto) 0 uL; Basophils % (auto) 0.7 % (0.0-2.0); Eosinophils # (auto) 0 uL; Eosinophils % (auto) 0.4 % (0.0-7.0); Hemoglobin 10.9 g/dL (12.2-16.2); Lymphocytes # (auto) 0.4 uL; Lymphocytes % (auto) 5.7 % (10.0-50.0); Mean Corpuscular Hemoglobin 30.8 pg (28.0-32.0); Mean Corpuscular Hgb Conc. 32.9 g/dL (32.0-36.0); Mean Corpuscular Volume 93.6 fL (80.0-100.0); Monocytes # (auto) 0.2 uL; Monocytes % (auto) 3.4 % (0.0-12.0); Neutrophils # (auto) 6.3 uL; Neutrophils % (auto) 89.8 % (37.0-80.0); Platelet Count (auto) 143 10^3/uL (140-450); Red Blood Cells 3.53 10^6/uL (4.0-5.20); Red Cell Distribution Width 15.4 % (11.8-14.3)
[2017-04-17 06:48] LABS: Cholesterol 179 mg/dL (< 200); HDL Cholesterol 59 mg/dL (40-59); LDL Cholesterol 114 mg/dL (< 100); Triglycerides 97 mg/dL (< 150)
[2017-04-17] MEDS: SODIUM CHLORIDE 0.9% 1,000 ML IV SCH ×2 (06:48→15:55)
[2017-04-17 09:00] VITALS: BP 110/72
[2017-04-17] MEDS ORDERED: predniSONE 20 MG TAB PO SCH (10:00)
[2017-04-17] MEDS ORDERED: ERTAPENEM SOD INJ 1 GM in SODIUM CHL 0.9% 100 ML IV SCH (10:00)
[2017-04-17] MEDS: SPIRONOLACTONE 100 MG PO SCH (10:00)
[2017-04-17] MEDS: predniSONE 20 MG TAB PO SCH (10:38)
[2017-04-17] MEDS: ASPirin 81 mg TAB PO SCH (10:39)
[2017-04-17] MEDS: METOPROLOL TARTRATE 25 MG TAB PO SCH ×2 (10:40→22:51)
[2017-04-17] MEDS: LACTULOSE 20Gm/30ML SOLN PO SCH (10:41)
[2017-04-17] MEDS: PANTOPRAZOLE 40 MG TAB PO SCH (10:41)
[2017-04-17] MEDS: ENOXAPARIN SOD 40 MG/0.4 ML SYRINGE SC SCH (10:41)
[2017-04-17 13:23] VITALS: BP 109/67
[2017-04-17] MEDS ORDERED: FLORASTOR (S. BOULARDII) 250 MG CAP PO ONE (14:26)
[2017-04-17 16:26] VITALS: BP 110/67
[2017-04-17] MEDS: URSODIOL 300 MG PO SCH (18:00)
[2017-04-17 23:03] VITALS: BP 123/69
[2017-04-18] VITALS (7 sets, daily range): BP systolic 109–132; BP diastolic 55–73
[2017-04-18] MEDS: SODIUM CHLORIDE 0.9% 1,000 ML IV SCH ×2 (04:48→18:29)
[2017-04-18] MEDS: oxyCODONE ER 20 MG TAB PO SCH ×3 (06:39→22:12)
[2017-04-18] MEDS: CLINDAMYCIN 600MG IV 50 ML IV SCH ×3 (06:39→22:12)
[2017-04-18 07:15] LABS: BUN/Creatinine Ratio 26.2; Magnesium 2.4 mg/dL (1.6-2.6); Potassium 4.2 mmol/L (3.5-5.1)
[2017-04-18 09:03] LABS: Basophils # (auto) 0 uL; Basophils % (auto) 0.3 % (0.0-2.0); Eosinophils # (auto) 0 uL; Eosinophils % (auto) 0.1 % (0.0-7.0); Hematocrit 31.8 % (36.0-46.0); Hemoglobin 10.4 g/dL (12.2-16.2); Lymphocytes # (auto) 0.9 uL; Mean Corpuscular Hemoglobin 30.5 pg (28.0-32.0); Mean Corpuscular Hgb Conc. 32.8 g/dL (32.0-36.0); Monocytes # (auto) 0.9 uL; Monocytes % (auto) 9.4 % (0.0-12.0); Neutrophils # (auto) 7.6 uL; Neutrophils % (auto) 80.2 % (37.0-80.0); Nucleated Red Blood Cells % 0.1 %; Platelet Count (auto) 141 10^3/uL (140-450); Red Blood Cells 3.42 10^6/uL (4.0-5.20); Red Cell Distribution Width 15.5 % (11.8-14.3); White Blood Cell 9.4 10^3/uL (4.4-10.8)
[2017-04-18] MEDS: FLORASTOR (S. BOULARDII) 250 MG CAP PO SCH (09:39)
[2017-04-18] MEDS: ASPirin 81 mg TAB PO SCH (09:40)
[2017-04-18] MEDS: predniSONE 20 MG TAB PO SCH (09:40)
[2017-04-18] MEDS: PANTOPRAZOLE 40 MG TAB PO SCH (09:40)
[2017-04-18] MEDS: METOPROLOL TARTRATE 25 MG TAB PO SCH ×2 (09:41→22:13)
[2017-04-18] MEDS: ENOXAPARIN SOD 40 MG/0.4 ML SYRINGE SC SCH (09:42)
[2017-04-18] MEDS: SPIRONOLACTONE 100 MG PO SCH (10:00)
[2017-04-18] MEDS: URSODIOL 300 MG PO SCH (17:11)
[2017-04-19 05:00] VITALS: BP 138/73
[2017-04-19] MEDS: CLINDAMYCIN 600MG IV 50 ML IV SCH ×2 (05:12→14:00)
[2017-04-19] MEDS: oxyCODONE ER 20 MG TAB PO SCH ×2 (05:12→14:26)
[2017-04-19 06:59] LABS: Basophils # (auto) 0 uL; Basophils % (auto) 0.2 % (0.0-2.0); Eosinophils # (auto) 0 uL; Eosinophils % (auto) 0.2 % (0.0-7.0); Hematocrit 32.7 % (36.0-46.0); Hemoglobin 10.9 g/dL (12.2-16.2); Lymphocytes # (auto) 1.3 uL; Lymphocytes % (auto) 13.1 % (10.0-50.0); Mean Corpuscular Hemoglobin 31.2 pg (28.0-32.0); Mean Corpuscular Hgb Conc. 33.4 g/dL (32.0-36.0); Mean Corpuscular Volume 93.3 fL (80.0-100.0); Monocytes # (auto) 0.7 uL; Monocytes % (auto) 7.2 % (0.0-12.0); Neutrophils # (auto) 7.6 uL; Neutrophils % (auto) 79.3 % (37.0-80.0); Platelet Count (auto) 161 10^3/uL (140-450); Red Blood Cells 3.51 10^6/uL (4.0-5.20); Red Cell Distribution Width 15.7 % (11.8-14.3); White Blood Cell 9.6 10^3/uL (4.4-10.8)
[2017-04-19 07:30] VITALS: BP 141/84
[2017-04-19 07:48] VITALS: BP 141/84
[2017-04-19] MEDS: FLORASTOR (S. BOULARDII) 250 MG CAP PO SCH (08:58)
[2017-04-19] MEDS: ASPirin 81 mg TAB PO SCH (08:59)
[2017-04-19] MEDS: predniSONE 20 MG TAB PO SCH (08:59)
[2017-04-19] MEDS: PANTOPRAZOLE 40 MG TAB PO SCH (08:59)
[2017-04-19] MEDS: METOPROLOL TARTRATE 25 MG TAB PO SCH (09:00)
[2017-04-19] MEDS: ENOXAPARIN SOD 40 MG/0.4 ML SYRINGE SC SCH (09:00)
[2017-04-19] MEDS: SODIUM CHLORIDE 0.9% 1,000 ML IV SCH (09:24)
[2017-04-19] MEDS: SPIRONOLACTONE 100 MG PO SCH (10:00)
[2017-04-19 11:33] VITALS: BP 130/81
[2017-04-19] MEDS ORDERED: SACC250C PO (11:39)
[2017-04-19] MEDS ORDERED: CLIN1CAP4 PO (11:39)
[2017-04-19 13:13] VITALS: BP 141/84
== END 2017-04-19 15:15 | disposition home or self-care (01) | DRG 871 ==
LOC: ER 07:56 → EDBD 07:56 → TELE 07:57 → TELE-EAST 19:49
PROVIDERS: ADMIT Internal Medicine; ATTEND Internal Medicine
DX: A41.9 Sepsis, unspecified organism (principal); G93.41 Metabolic encephalopathy; E44.0 Moderate protein-calorie malnutrition; I11.0 Hypertensive heart disease with heart failure; I50.32 Chronic diastolic (congestive) heart failure; F11.20 Opioid dependence, uncomplicated; M34.9 Systemic sclerosis, unspecified; M35.00 Sjogren syndrome, unspecified; L03.115 Cellulitis of right lower limb; E03.9 Hypothyroidism, unspecified; J44.9 Chronic obstructive pulmonary disease, unspecified; K21.9 Gastro-esophageal reflux disease without esophagitis; K74.3 Primary biliary cirrhosis; H54.61 Unqualified visual loss, right eye, normal vision left eye; F41.9 Anxiety disorder, unspecified; G89.29 Other chronic pain; M19.90 Unspecified osteoarthritis, unspecified site; M54.9 Dorsalgia, unspecified; E78.5 Hyperlipidemia, unspecified; Z88.1 Allergy status to other antibiotic agents; Z88.5 Allergy status to narcotic agent; Z88.8 Allergy status to other drugs, medicaments and biological substances; Z68.24 Body mass index [BMI] 24.0-24.9, adult; Z82.3 Family history of stroke; Z80.3 Family history of malignant neoplasm of breast; Z82.49 Family history of ischemic heart disease and other diseases of the circulatory system; Z86.711 Personal history of pulmonary embolism; Z86.718 Personal history of other venous thrombosis and embolism; Z90.710 Acquired absence of both cervix and uterus; Z90.49 Acquired absence of other specified parts of digestive tract
CPT/HCPCS: 36415; 70450; 71045; 80048; 80053; 80061; 80320; 82140; 82550; 82607; 82746; 82962; 83605; 83690; 83735; 84443; 84484; 85025; 85610; 85652; 85730; 87040; 87081; 93005; 94761; 96365; 96366; 96372; 96375; J1335; J3490

== ENCOUNTER → 2017-11-10 | Outpatient (CLI) | payer MEDICARE, MEDICAID ==
[~2017-11-10] MED LIST changes: +CLIN1CAP4 PO; -ESZO3TAB53 PO
[2017-11-10 14:38] LABS: Basophils # (auto) 0.1 uL; Basophils % (auto) 1.1 % (0.0-2.0); Eosinophils # (auto) 0.3 uL; Eosinophils % (auto) 4.6 % (0.0-7.0); Hematocrit 38.4 % (36.0-46.0); Hemoglobin 12.9 g/dL (12.2-16.2); Lymphocytes # (auto) 1.5 uL; Lymphocytes % (auto) 20.1 % (10.0-50.0); Mean Corpuscular Hemoglobin 30.6 pg (28.0-32.0); Mean Corpuscular Hgb Conc. 33.6 g/dL (32.0-36.0); Mean Corpuscular Volume 91.1 fL (80.0-100.0); Monocytes # (auto) 0.9 uL; Monocytes % (auto) 11.9 % (0.0-12.0); Neutrophils # (auto) 4.5 uL; Neutrophils % (auto) 62.3 % (37.0-80.0); Platelet Count (auto) 212 10^3/uL (140-450); Red Blood Cells 4.22 10^6/uL (4.0-5.20); Red Cell Distribution Width 14.1 % (11.8-14.3); White Blood Cell 7.2 10^3/uL (4.4-10.8)
[2017-11-10 14:53] LABS: INR 0.93 (0.9-1.15)
[2017-11-10 15:07] LABS: Albumin 3.3 g/dL (3.4-5.0); Calcium 8.9 mg/dL (8.5-10.1); Potassium 4.5 mmol/L (3.5-5.1)
[2017-11-10 15:12] LABS: Bilirubin, Total 0.5 mg/dL (0.2-1.0); Total Protein 7.4 g/dL (6.4-8.2)
== END | disposition home or self-care (01) ==
LOC: LAB 14:19
PROVIDERS: ATTEND Internal Medicine Gastroenterology
DX: K74.60 Unspecified cirrhosis of liver (principal)
CPT/HCPCS: 36415; 80053; 85025; 85610

== ENCOUNTER → 2018-03-03 | Outpatient (CLI) | payer MEDICARE, MEDICAID ==
[2018-03-03 12:28] LABS: Basophils # (auto) 0.1 uL; Basophils % (auto) 2.4 % (0.0-2.0); Eosinophils # (auto) 0.4 uL; Eosinophils % (auto) 8.6 % (0.0-7.0); Hematocrit 37.6 % (36.0-46.0); Hemoglobin 12.3 g/dL (12.2-16.2); Lymphocytes # (auto) 1.4 uL; Lymphocytes % (auto) 26.4 % (10.0-50.0); Mean Corpuscular Hgb Conc. 32.7 g/dL (32.0-36.0); Mean Corpuscular Volume 91.7 fL (80.0-100.0); Monocytes # (auto) 0.6 uL; Monocytes % (auto) 11.2 % (0.0-12.0); Neutrophils # (auto) 2.6 uL; Neutrophils % (auto) 51.4 % (37.0-80.0); Nucleated Red Blood Cells % 0.1 %; Platelet Count (auto) 174 10^3/uL (140-450); Red Blood Cells 4.11 10^6/uL (4.0-5.20); Red Cell Distribution Width 13.9 % (11.8-14.3); White Blood Cell 5.1 10^3/uL (4.4-10.8)
[2018-03-03 12:39] LABS: Urine Bacteria NONE SEEN /hpf (None Seen); Urine Blood Negative /uL (Negative); Urine Specific Gravity 1.014 (1.001-1.035); Urine WBC 1 /hpf (0 - 5)
[2018-03-03 12:45] LABS: INR 0.95 (0.9-1.15); Prothrombin Time 10.2 sec (9.27-12.13)
[2018-03-03 13:22] LABS: Albumin 3.1 g/dL (3.4-5.0); Calcium 8.9 mg/dL (8.5-10.1)
[2018-03-03 13:27] LABS: BUN/Creatinine Ratio 23.5; Bilirubin, Total 0.3 mg/dL (0.2-1.0); Total Protein 6.8 g/dL (6.4-8.2)
[2018-03-03 13:37] LABS: Free T3 3.34 pg/mL (2.3-4.2)
== END | disposition home or self-care (01) ==
LOC: LAB 11:12
PROVIDERS: ATTEND Nurse Practitioner
DX: I11.0 Hypertensive heart disease with heart failure (principal); E78.5 Hyperlipidemia, unspecified; I50.9 Heart failure, unspecified; Z79.899 Other long term (current) drug therapy
CPT/HCPCS: 36415; 80053; 80061; 81001; 82105; 82306; 84439; 84443; 84481; 85025; 85610

== ENCOUNTER → 2019-06-06 | Outpatient (CLI) | payer MEDICARE ==
[~2019-06-06] MED LIST changes: -CLIN1CAP4 PO; -DEXL60CA3 PO; +FURO1TAB32 PO; -FURO80TA PO; -LACT10SO44 PO; -LEVO500T21 PO; +ONDA-144 PO; +PANT40TA2 PO; -SACC250C PO; +SUCR1TAB38 OR
[2019-06-06 12:59] LABS: Basophils # (auto) 0.1 10 ^3/uL (0-0.2); Basophils % (auto) 2.2 % (0.0-2.0); Eosinophils # (auto) 0.2 10 ^3/uL (0-0.8); Hematocrit 31.9 % (36.0-46.0); Hemoglobin 10.4 g/dL (12.2-16.2); Lymphocytes # (auto) 0.9 10 ^3/uL (0.4-5.4); Lymphocytes % (auto) 14.7 % (10.0-50.0); Mean Corpuscular Hemoglobin 29.8 pg (28.0-32.0); Mean Corpuscular Hgb Conc. 32.5 g/dL (32.0-36.0); Mean Corpuscular Volume 91.7 fL (80.0-100.0); Monocytes # (auto) 0.6 10 ^3/uL (0-1.3); Monocytes % (auto) 8.7 % (0.0-12.0); Neutrophils # (auto) 4.6 10 ^3/uL (1.6-8.6); Neutrophils % (auto) 71.4 % (37.0-80.0); Platelet Count (auto) 287 10^3/uL (140-450); Red Blood Cells 3.48 10^6/uL (4.0-5.20); Red Cell Distribution Width 16.4 % (11.8-14.3); White Blood Cell 6.5 10^3/uL (4.4-10.8)
[2019-06-06 13:06] LABS: Urine Blood Negative /uL (Negative); Urine Specific Gravity 1.027 (1.001-1.035)
[2019-06-06 13:28] LABS: Albumin 2.6 g/dL (3.4-5.0); Potassium 3.3 mmol/L (3.5-5.1)
[2019-06-06 13:34] LABS: BUN/Creatinine Ratio 18.4; Bilirubin, Total 0.4 mg/dL (0.2-1.0)
[2019-06-06 13:35] LABS: Hepatitis B Surface Antibody Negative
[2019-06-07 07:03] LABS: Hepatitis B Surface Antigen Negative (Negative)
[2019-06-07 07:22] LABS: Hepatitis A Total Antibody Negative; Hepatitis B Core Total AB Negative; Hepatitis C Antibody Negative (Negative)
== END | disposition home or self-care (01) ==
LOC: LAB 12:25
PROVIDERS: ATTEND Internal Medicine
DX: M32.10 Systemic lupus erythematosus, organ or system involvement unspecified (principal); J44.9 Chronic obstructive pulmonary disease, unspecified; K74.3 Primary biliary cirrhosis; I10 Essential (primary) hypertension; Z79.899 Other long term (current) drug therapy
CPT/HCPCS: 36415; 80053; 80061; 81003; 82607; 83036; 84443; 85025; 86431; 86704; 86706; 86708; 86803; 87340

== ENCOUNTER → 2020-12-31 | Outpatient (CLI) | payer MEDICARE, MEDICAID ==
[~2020-12-31] MED LIST changes: +CYCL10TA6 OR; -CYCL1TAB18 OR; +SUCR1TAB22 OR; -SUCR1TAB38 OR
[2020-12-31 13:58] LABS: Basophils # (auto) 0.1 10 ^3/uL (0-0.2); Hematocrit 30.3 % (36.0-46.0); Lymphocytes # (auto) 1.2 10 ^3/uL (0.4-5.4); Mean Corpuscular Hgb Conc. 31.8 g/dL (32.0-36.0); Neutrophils # (auto) 7.2 10 ^3/uL (1.6-8.6); White Blood Cell 10.2 10^3/uL (4.4-10.8)
[2020-12-31 14:04] LABS: Basophils % (auto) 1.3 % (0.0-2.0); Eosinophils # (auto) 0.5 10 ^3/uL (0-0.8); Hemoglobin 9.7 g/dL (12.2-16.2); Lymphocytes % (auto) 11.8 % (10.0-50.0); Mean Corpuscular Hemoglobin 25.8 pg (28.0-32.0); Mean Corpuscular Volume 81.1 fL (80.0-100.0); Monocytes # (auto) 1.2 10 ^3/uL (0-1.3); Monocytes % (auto) 11.7 % (0.0-12.0); Neutrophils % (auto) 70.2 % (37.0-80.0); Red Blood Cells 3.74 10^6/uL (4.0-5.20); Red Cell Distribution Width 17.7 % (11.8-14.3)
[2020-12-31 14:37] LABS: Potassium 3.8 mmol/L (3.5-5.1)
[2020-12-31 14:44] LABS: BUN/Creatinine Ratio 29.8
[2020-12-31 14:45] LABS: Albumin 2.6 g/dL (3.4-5.0); Bilirubin, Total 0.7 mg/dL (0.2-1.0); Calcium 8.8 mg/dL (8.5-10.1); Total Protein 6.9 g/dL (6.4-8.2)
== END | disposition home or self-care (01) ==
LOC: LAB 13:48
PROVIDERS: ATTEND Nurse Practitioner Family
DX: M79.89 Other specified soft tissue disorders (principal)
CPT/HCPCS: 36415; 80053; 85025

== ENCOUNTER 2021-02-07 06:50 | Day surgery (SDC) | payer MEDICARE, MEDICAID ==
[2021-02-07] VITALS (7 sets, daily range): BP systolic 96–109; BP diastolic 51–70
[~2021-02-07] VITALS: Ht 152.4 cm; Wt 44.0 kg
[~2021-02-07 06:50] MED LIST changes: -ALB5IS NEB; -ATEN-60 PO; -CALC1TAB64 PO; -CYCL10TA6 OR; -FURO1TAB32 PO; -ONDA-144 PO; -PANT40TA2 PO; -PRE5T PO; -SPIR100T PO; -SUCR1TAB22 OR
[2021-02-07] MEDS ORDERED: LIDOCAINE 2%HCL (LOCAL ANESTH.) INJ 20ML MDV ONE (07:07)
[2021-02-07] MEDS ORDERED: IOHEXOL 350 MG/ML 100ML IJ ONE (07:07)
[2021-02-07] MEDS ORDERED: fentaNYL CITRATE 100 MCG/2 ML VL ONE (08:57)
[2021-02-07] MEDS ORDERED: ANGIOMAX 250 MG VIAL IV ONE (08:57)
[2021-02-07] MEDS ORDERED: MIDAZOLAM HCL 2MG/2ML 2ml VIAL (1mg/ml) ONE (08:58)
[2021-02-07] MEDS ORDERED: SODIUM CHL 0.9% 0 ML ONE (08:58)
== END 2021-02-07 12:25 | disposition home or self-care (01) ==
LOC: CATH 06:50
PROVIDERS: ATTEND Internal Medicine Cardiovascular Disease
DX: R94.39 Abnormal result of other cardiovascular function study (principal); I25.10 Atherosclerotic heart disease of native coronary artery without angina pectoris; J44.9 Chronic obstructive pulmonary disease, unspecified; F41.9 Anxiety disorder, unspecified; F32.9 Major depressive disorder, single episode, unspecified; Z80.3 Family history of malignant neoplasm of breast; Z87.891 Personal history of nicotine dependence; Z86.718 Personal history of other venous thrombosis and embolism; Z90.710 Acquired absence of both cervix and uterus; Z80.0 Family history of malignant neoplasm of digestive organs; Z83.6 Family history of other diseases of the respiratory system; Z82.61 Family history of arthritis; Z20.822 Contact with and (suspected) exposure to COVID-19
CPT/HCPCS: 75736; 93458; C1760; C1894; J1644; J2250; J3010; J7030; Q9967; U0003; 99152; 99153

== ENCOUNTER 2021-08-23 10:00 | Inpatient (IN) | payer MEDICARE, MEDICAID ==
[~2021-08-23] VITALS: Ht 149.9 cm; Wt 42.6 kg
[2021-08-23] MEDS ORDERED: ONDANSETRON HCL 4 MG/2 ML VIAL IV ONE ×2 (10:15→14:45)
[2021-08-23] MEDS ORDERED: HYDROmorphone HCL 2 MG/ML VL/or syr IV ONE ×2 (10:15→14:45)
[2021-08-23] MEDS ORDERED: SODIUM CHLORIDE 0.9% 500 ML IVB ONE (10:15)
[2021-08-23 12:47] LABS: Urine Bacteria NONE SEEN /hpf (None Seen); Urine Blood Negative /uL (Negative); Urine Hyaline Cast FEW /lpf (0 - 2); Urine Specific Gravity 1.015 (1.001-1.035); Urine WBC 3 /hpf (0 - 5)
[2021-08-23 13:03] LABS: Basophils # (auto) 0.1 10 ^3/uL (0-0.2); Basophils % (auto) 1.3 % (0.0-2.0); Eosinophils # (auto) 0.1 10 ^3/uL (0-0.8); Eosinophils % (auto) 1.8 % (0.0-7.0); Hematocrit 33.7 % (36.0-46.0); Hemoglobin 10.9 g/dL (12.2-16.2); Lymphocytes # (auto) 0.6 10 ^3/uL (0.4-5.4); Lymphocytes % (auto) 11.4 % (10.0-50.0); Mean Corpuscular Hemoglobin 27.3 pg (28.0-32.0); Mean Corpuscular Hgb Conc. 32.3 g/dL (32.0-36.0); Mean Corpuscular Volume 84.4 fL (80.0-100.0); Monocytes # (auto) 0.6 10 ^3/uL (0-1.3); Monocytes % (auto) 10.8 % (0.0-12.0); Neutrophils % (auto) 74.7 % (37.0-80.0); Nucleated Red Blood Cells % 0.2 %; Red Cell Distribution Width 17.2 % (11.8-14.3); White Blood Cell 5.4 10^3/uL (4.4-10.8)
[2021-08-23 13:24] LABS: Albumin 2.1 g/dL (3.4-5.0); Calcium 8.6 mg/dL (8.5-10.1)
[2021-08-23 13:27] LABS: BUN/Creatinine Ratio 21.9; Bilirubin, Total 0.8 mg/dL (0.2-1.0); Total Protein 6.6 g/dL (6.4-8.2)
[2021-08-23 13:39] LABS: Potassium 2.8 mmol/L (3.5-5.1)
[2021-08-23] MEDS ORDERED: ALBUTEROL SULF 2.5 MG/0.5ML(0.5%) NEB SOLN NEB PRN (15:00)
[2021-08-23] MEDS ORDERED: POTASSIUM CHL 20 Meq TABLET PO ONE (15:00)
[2021-08-23 15:39] LABS: Cholesterol 105 mg/dL (< 200); HDL Cholesterol 22 mg/dL (40-59); LDL Cholesterol 81 mg/dL (< 100); Triglycerides 93 mg/dL (< 150)
[2021-08-23] MEDS: ERTAPENEM SOD INJ 1 GM in SODIUM CHL 0.9% 50 ML IV SCH (18:17)
[2021-08-23 18:18] LABS: INR 1.24 (0.9-1.15)
[2021-08-23] MEDS: HYDROmorphone HCL 2 MG/ML VL/or syr IV PRN (20:48)
[2021-08-23 21:10] VITALS: BP 112/65
[2021-08-23] MEDS ORDERED: POTASSIUM EFFERVESENT TAB 25 MEQ PO ONE (21:30)
[2021-08-23 22:00] VITALS: BP 112/65
[2021-08-23] MEDS ORDERED: FAMOTIDINE (10MG/ML) 2ML VL IV ONE (22:01)
[2021-08-23] MEDS: POTASSIUM CHL 20MEQ/100ML 100 ML IV SCH (22:42)
[2021-08-23 23:22] VITALS: BP 112/65
[2021-08-24] MEDS: POTASSIUM CHL 20MEQ/100ML 100 ML IV SCH (00:37)
[2021-08-24] MEDS: HYDROmorphone HCL 2 MG/ML VL/or syr IV PRN ×4 (01:26→20:40)
[2021-08-24 05:00] VITALS: BP 109/50
[2021-08-24 06:26] LABS: Basophils # (auto) 0.1 10 ^3/uL (0-0.2); Basophils % (auto) 1.2 % (0.0-2.0); Eosinophils # (auto) 0.2 10 ^3/uL (0-0.8); Eosinophils % (auto) 3.3 % (0.0-7.0); Hematocrit 31.2 % (36.0-46.0); Hemoglobin 10.4 g/dL (12.2-16.2); Lymphocytes # (auto) 0.6 10 ^3/uL (0.4-5.4); Lymphocytes % (auto) 10.5 % (10.0-50.0); Mean Corpuscular Hemoglobin 28.1 pg (28.0-32.0); Mean Corpuscular Hgb Conc. 33.2 g/dL (32.0-36.0); Mean Corpuscular Volume 84.6 fL (80.0-100.0); Monocytes # (auto) 0.7 10 ^3/uL (0-1.3); Monocytes % (auto) 12.1 % (0.0-12.0); Neutrophils # (auto) 4.2 10 ^3/uL (1.6-8.6); Neutrophils % (auto) 72.9 % (37.0-80.0); Red Blood Cells 3.69 10^6/uL (4.0-5.20); Red Cell Distribution Width 17.4 % (11.8-14.3); White Blood Cell 5.8 10^3/uL (4.4-10.8)
[2021-08-24 06:42] LABS: Potassium 3.9 mmol/L (3.5-5.1)
[2021-08-24 06:50] LABS: Albumin 1.9 g/dL (3.4-5.0); BUN/Creatinine Ratio 30.2; Bilirubin, Total 0.6 mg/dL (0.2-1.0); Calcium 8.5 mg/dL (8.5-10.1)
[2021-08-24 08:00] VITALS: BP 121/68
[2021-08-24 09:00] VITALS: BP 121/68
[2021-08-24] MEDS: ERTAPENEM SOD INJ 1 GM in SODIUM CHL 0.9% 50 ML IV SCH (09:25)
[2021-08-24] MEDS ORDERED: FUROSEMIDE 20 MG/2 ML VIAL IV ONE (10:45)
[2021-08-24] MEDS ORDERED: ALBUMIN 25% 100 ML IV ONE (10:45)
[2021-08-24] MEDS ORDERED: SODIUM CHLORIDE 0.9% 1,000 ML IV SCH (12:30)
[2021-08-24] MEDS ORDERED: LIDOCAINE VISCOUS 2% 15ML UD ONE (13:22)
[2021-08-24] MEDS ORDERED: SODIUM CHLORIDE LOCK 10 ML ONE (13:22)
[2021-08-24] MEDS ORDERED: diphenhdrAMINE HCL 50 MG/1 ML VL ONE (13:23)
[2021-08-24] MEDS: fentaNYL CITRATE 100 MCG/2 ML VL ONE ×2 (13:33→13:36)
[2021-08-24] MEDS: MIDAZOLAM HCL 5 MG/ML-1ML VIAL ONE ×2 (13:33→13:36)
[2021-08-24] MEDS: POTASSIUM CHL 20 Meq TABLET PO ONE ×2 (15:00→16:40)
[2021-08-24] MEDS: ONDANSETRON HCL 4 MG/2 ML VIAL IV PRN ×2 (16:40→20:50)
[2021-08-24 17:00] VITALS: BP 134/68
[2021-08-24] MEDS: SUCRALFATE 1 GM/10 ML ORAL SUSP PO SCH ×2 (17:00→18:17)
[2021-08-24] MEDS ORDERED: NYSTATIN (MOUTH-THROAT) 500,000 UNITS/5 ML SUSP MT SCH (18:00)
[2021-08-24] MEDS: FUROSEMIDE 20 MG/2 ML VIAL IV SCH (18:18)
[2021-08-24] MEDS ORDERED: ASPI81CH59 PO (18:56)
[2021-08-24] MEDS ORDERED: BIOT1CAP OR (18:59)
[2021-08-24] MEDS ORDERED: MULT-683 OR (18:59)
[2021-08-24] MEDS ORDERED: MET25T PO (18:59)
[2021-08-24] MEDS ORDERED: ASCO100076 PO (18:59)
[2021-08-24] MEDS: PANTOPRAZOLE 40 MG TAB PO SCH (20:33)
[2021-08-24 22:00] VITALS: BP 132/60
[2021-08-25] MEDS: ONDANSETRON HCL 4 MG/2 ML VIAL IV PRN ×3 (04:13→21:10)
[2021-08-25] MEDS: HYDROmorphone HCL 2 MG/ML VL/or syr IV PRN ×4 (04:13→21:55)
[2021-08-25 05:00] VITALS: BP 113/55
[2021-08-25] MEDS: FUROSEMIDE 20 MG/2 ML VIAL IV SCH ×2 (06:17→17:37)
[2021-08-25] MEDS: SUCRALFATE 1 GM/10 ML ORAL SUSP PO SCH ×4 (06:17→21:12)
[2021-08-25 08:00] VITALS: BP 101/64
[2021-08-25] MEDS: METOCLOPRAMIDE HCL 5MG/ml INJ 2ml VIAL IV PRN ×2 (08:01→23:25)
[2021-08-25] MEDS ORDERED: ALPRAZolam 0.25 MG TAB PO ONE (08:30)
[2021-08-25 09:00] VITALS: BP 101/64
[2021-08-25] MEDS: ERTAPENEM SOD INJ 1 GM in SODIUM CHL 0.9% 50 ML IV SCH (09:35)
[2021-08-25] MEDS: PANTOPRAZOLE 40 MG TAB PO SCH ×2 (09:35→21:13)
[2021-08-25] MEDS: SPIRONOLACTONE 25 MG TAB PO SCH (09:35)
[2021-08-25 13:00] VITALS: BP 100/51
[2021-08-25] MEDS ORDERED: ALBUMIN 25% 100 ML IV ONE (14:45)
[2021-08-25 17:03] VITALS: BP 108/54
[2021-08-25] MEDS: PROPRANOLOL HCL 20 MG TAB PO SCH (21:13)
[2021-08-25 22:00] VITALS: BP 122/64
[2021-08-26] VITALS (7 sets, daily range): BP systolic 105–127; BP diastolic 45–103
[2021-08-26] MEDS ORDERED: TEMAZEPAM 15 MG CAP PO ONE (00:19)
[2021-08-26] MEDS: HYDROmorphone HCL 2 MG/ML VL/or syr IV PRN ×5 (03:39→21:21)
[2021-08-26] MEDS: ONDANSETRON HCL 4 MG/2 ML VIAL IV PRN ×2 (03:40→08:07)
[2021-08-26] MEDS: FUROSEMIDE 20 MG/2 ML VIAL IV SCH ×2 (06:23→17:10)
[2021-08-26] MEDS: SUCRALFATE 1 GM/10 ML ORAL SUSP PO SCH ×4 (06:23→21:22)
[2021-08-26] MEDS ORDERED: SODIUM CHLORIDE 0.9% 250 ML IV ONE (10:00)
[2021-08-26] MEDS: SPIRONOLACTONE 25 MG TAB PO SCH (10:00)
[2021-08-26] MEDS: PROPRANOLOL HCL 20 MG TAB PO SCH ×2 (10:00→21:22)
[2021-08-26] MEDS: cefTRIAXone 1GM/50ML D5W 50 ML IV SCH (10:45)
[2021-08-26] MEDS: PANTOPRAZOLE 40 MG TAB PO SCH ×2 (10:46→21:22)
[2021-08-26] MEDS ORDERED: ALBUMIN 25% 50 ML IV ONE (11:15)
[2021-08-26] MEDS: IPRATROPIUM BROM 0.5 MG/2.5ML INH SOL NEB SCH ×2 (12:44→21:00)
[2021-08-26 14:26] LABS: Hepatitis B Surface Antibody Negative (Negative)
[2021-08-26 15:05] LABS: Hepatitis A Total Antibody Negative (Negative)
[2021-08-26 15:22] LABS: Hepatitis C Antibody Negative (Negative)
[2021-08-27] MEDS: ONDANSETRON HCL 4 MG/2 ML VIAL IV PRN ×3 (00:05→13:43)
[2021-08-27] MEDS ORDERED: TEMAZEPAM 15 MG CAP PO ONE (00:45)
[2021-08-27 05:00] VITALS: BP_SYST 104; BP_SYST 93; BP_DIAS 46; BP_DIAS 50
[2021-08-27] MEDS: HYDROmorphone HCL 2 MG/ML VL/or syr IV PRN ×4 (05:48→19:39)
[2021-08-27] MEDS: FUROSEMIDE 20 MG/2 ML VIAL IV SCH ×2 (06:00→18:00)
[2021-08-27] MEDS: IPRATROPIUM BROM 0.5 MG/2.5ML INH SOL NEB SCH ×4 (06:12→19:36)
[2021-08-27] MEDS: SUCRALFATE 1 GM/10 ML ORAL SUSP PO SCH ×4 (06:34→17:32)
[2021-08-27 09:00] VITALS: BP 120/50
[2021-08-27] MEDS: cefTRIAXone 1GM/50ML D5W 50 ML IV SCH (09:23)
[2021-08-27] MEDS: SPIRONOLACTONE 25 MG TAB PO SCH (09:27)
[2021-08-27] MEDS: PANTOPRAZOLE 40 MG TAB PO SCH ×2 (09:27→22:13)
[2021-08-27] MEDS: PROPRANOLOL HCL 20 MG TAB PO SCH ×2 (09:34→22:00)
[2021-08-27 13:41] LABS: Basophils # (auto) 0 10 ^3/uL (0-0.2); Basophils % (auto) 0.6 % (0.0-2.0); Eosinophils # (auto) 0.3 10 ^3/uL (0-0.8); Eosinophils % (auto) 5.2 % (0.0-7.0); Hematocrit 36.7 % (36.0-46.0); Hemoglobin 11.9 g/dL (12.2-16.2); Lymphocytes # (auto) 0.7 10 ^3/uL (0.4-5.4); Lymphocytes % (auto) 12.4 % (10.0-50.0); Mean Corpuscular Hemoglobin 27.9 pg (28.0-32.0); Mean Corpuscular Hgb Conc. 32.4 g/dL (32.0-36.0); Mean Corpuscular Volume 86.1 fL (80.0-100.0); Monocytes # (auto) 0.7 10 ^3/uL (0-1.3); Neutrophils # (auto) 4.3 10 ^3/uL (1.6-8.6); Neutrophils % (auto) 70.8 % (37.0-80.0); Red Blood Cells 4.26 10^6/uL (4.0-5.20); Red Cell Distribution Width 17.5 % (11.8-14.3)
[2021-08-27 13:50] LABS: INR 1.19 (0.9-1.15); Partial Thromboplastin Time 21.4 sec (23.6-33.0)
[2021-08-27] MEDS: METOCLOPRAMIDE HCL 5MG/ml INJ 2ml VIAL IV PRN (15:31)
[2021-08-27 17:00] VITALS: BP 104/48
[2021-08-27] MEDS ORDERED: IOHEXOL 300 MG/ML 100ML BOTTLE IJ ONE (17:08)
[2021-08-28] MEDS ORDERED: TEMAZEPAM 15 MG CAP PO ONE (00:45)
[2021-08-28] MEDS: IPRATROPIUM BROM 0.5 MG/2.5ML INH SOL NEB SCH ×4 (01:21→18:00)
[2021-08-28] MEDS: HYDROmorphone HCL 2 MG/ML VL/or syr IV PRN ×4 (04:49→23:47)
[2021-08-28 05:00] VITALS: BP 123/79
[2021-08-28] MEDS: FUROSEMIDE 20 MG/2 ML VIAL IV SCH ×2 (06:00→17:48)
[2021-08-28] MEDS: SUCRALFATE 1 GM/10 ML ORAL SUSP PO SCH ×4 (06:26→22:00)
[2021-08-28 08:00] VITALS: BP 101/62
[2021-08-28] MEDS: SPIRONOLACTONE 25 MG TAB PO SCH (10:00)
[2021-08-28] MEDS: cefTRIAXone 1GM/50ML D5W 50 ML IV SCH (11:17)
[2021-08-28] MEDS: PROPRANOLOL HCL 20 MG TAB PO SCH ×2 (11:18→22:00)
[2021-08-28] MEDS: PANTOPRAZOLE 40 MG TAB PO SCH ×2 (11:18→22:00)
[2021-08-28] MEDS: ONDANSETRON HCL 4 MG/2 ML VIAL IV PRN (11:23)
[2021-08-28 11:28] LABS: Basophils # (auto) 0.1 10 ^3/uL (0-0.2); Eosinophils # (auto) 0.3 10 ^3/uL (0-0.8); Hemoglobin 10.6 g/dL (12.2-16.2); Mean Corpuscular Hgb Conc. 31.7 g/dL (32.0-36.0); Red Blood Cells 3.95 10^6/uL (4.0-5.20)
[2021-08-28 11:30] LABS: Eosinophils % (auto) 5.8 % (0.0-7.0); Hematocrit 33.3 % (36.0-46.0); Lymphocytes # (auto) 0.9 10 ^3/uL (0.4-5.4); Lymphocytes % (auto) 16.8 % (10.0-50.0); Mean Corpuscular Hemoglobin 26.7 pg (28.0-32.0); Mean Corpuscular Volume 84.2 fL (80.0-100.0); Monocytes # (auto) 0.6 10 ^3/uL (0-1.3); Monocytes % (auto) 11.7 % (0.0-12.0); Neutrophils # (auto) 3.3 10 ^3/uL (1.6-8.6); Neutrophils % (auto) 63.7 % (37.0-80.0); Nucleated Red Blood Cells % 0.1 %; Red Cell Distribution Width 17.5 % (11.8-14.3); White Blood Cell 5.2 10^3/uL (4.4-10.8)
[2021-08-28 12:00] VITALS: BP 149/58
[2021-08-28] MEDS: METOCLOPRAMIDE HCL 5MG/ml INJ 2ml VIAL IV SCH ×2 (13:31→23:45)
[2021-08-28] MEDS ORDERED: LIDOCAINE 1% (LOCAL ANESTH.) PF 5ml SDV ID ONE (15:00)
[2021-08-28] MEDS ORDERED: TPN PER PHARMACY 0 ML IV SCH (15:15)
[2021-08-28 16:00] VITALS: BP 132/78
[2021-08-28] MEDS ORDERED: AMINO ACID INFUSION IN D10W 1,000 ML IV NR (20:00)
[2021-08-28 22:08] VITALS: BP 141/72
[2021-08-28 22:44] LABS: Albumin 2.3 g/dL (3.4-5.0); Calcium 8.6 mg/dL (8.5-10.1); Magnesium 2.1 mg/dL (1.6-2.6); Potassium 3.3 mmol/L (3.5-5.1)
[2021-08-28 22:49] LABS: BUN/Creatinine Ratio 19.4; Bilirubin, Total 0.5 mg/dL (0.2-1.0); Phosphorus 2.9 mg/dL (2.5-4.90); Total Protein 6.7 g/dL (6.4-8.2)
[2021-08-28] MEDS: ACCU-CHEK COMFORT CURVE STRIP VI SCH (23:46)
[2021-08-28] MEDS: SODIUM CHLOR 0.9% PF (SALINE LOCK) 10ML VIAL/SYR IV SCH (23:46)
[2021-08-28] MEDS: InsuLIN REG 1unit/0.01ml Soln (100units/ml) SC SCH (23:50)
[2021-08-29] MEDS ORDERED: DEXTROSE (50%) 50ML SYRG IV SCH
[2021-08-29] MEDS: IPRATROPIUM BROM 0.5 MG/2.5ML INH SOL NEB SCH ×4 (00:41→19:08)
[2021-08-29 05:09] VITALS: BP 107/65
[2021-08-29] MEDS: InsuLIN REG 1unit/0.01ml Soln (100units/ml) SC SCH ×3 (06:00→18:00)
[2021-08-29] MEDS: FUROSEMIDE 20 MG/2 ML VIAL IV SCH ×2 (06:00→18:24)
[2021-08-29 06:22] LABS: Potassium 3.2 mmol/L (3.5-5.1)
[2021-08-29 06:32] LABS: Albumin 2.1 g/dL (3.4-5.0); BUN/Creatinine Ratio 22.7; Bilirubin, Total 0.4 mg/dL (0.2-1.0); Calcium 8.3 mg/dL (8.5-10.1); Magnesium 1.8 mg/dL (1.6-2.6); Phosphorus 2.8 mg/dL (2.5-4.90); Total Protein 6.1 g/dL (6.4-8.2)
[2021-08-29] MEDS: METOCLOPRAMIDE HCL 5MG/ml INJ 2ml VIAL IV SCH ×3 (06:53→23:17)
[2021-08-29] MEDS: ACCU-CHEK COMFORT CURVE STRIP VI SCH ×3 (06:53→18:23)
[2021-08-29] MEDS: HYDROmorphone HCL 2 MG/ML VL/or syr IV PRN ×3 (06:54→20:21)
[2021-08-29] MEDS: SUCRALFATE 1 GM/10 ML ORAL SUSP PO SCH ×4 (06:55→23:18)
[2021-08-29 08:00] VITALS: BP 107/68
[2021-08-29] MEDS ORDERED: POTASSIUM CHL 20MEQ/100ML 100 ML IV ONE (09:30)
[2021-08-29] MEDS ORDERED: POTASSIUM PHOSP 22MEQ(15MMOLE) in NS 100 ML IV ONE ×2 (09:30→11:30)
[2021-08-29] MEDS: cefTRIAXone 1GM/50ML D5W 50 ML IV SCH (09:59)
[2021-08-29] MEDS: SPIRONOLACTONE 25 MG TAB PO SCH (10:00)
[2021-08-29] MEDS: PROPRANOLOL HCL 20 MG TAB PO SCH ×2 (10:00→22:00)
[2021-08-29] MEDS: SODIUM CHLOR 0.9% PF (SALINE LOCK) 10ML VIAL/SYR IV SCH ×2 (10:01→23:17)
[2021-08-29] MEDS: PANTOPRAZOLE 40 MG TAB PO SCH ×2 (10:01→23:18)
[2021-08-29] MEDS ORDERED: POTASSIUM EFFERVESENT TAB 25 MEQ PO ONE (11:00)
[2021-08-29 12:00] VITALS: BP 114/55
[2021-08-29 16:00] VITALS: BP 104/58
[2021-08-29] MEDS ORDERED: TPN PER PHARMACY IV NR ×10 (20:00)
[2021-08-29 21:49] VITALS: BP 141/72
[2021-08-30] MEDS: IPRATROPIUM BROM 0.5 MG/2.5ML INH SOL NEB SCH ×5 (00:10→23:52)
[2021-08-30] MEDS: ACCU-CHEK COMFORT CURVE STRIP VI SCH ×4 (00:28→16:41)
[2021-08-30] MEDS: InsuLIN REG 1unit/0.01ml Soln (100units/ml) SC SCH ×4 (00:28→16:41)
[2021-08-30 05:10] VITALS: BP 101/57
[2021-08-30 06:23] LABS: Albumin 1.9 g/dL (3.4-5.0); Calcium 7.7 mg/dL (8.5-10.1); Potassium 3.7 mmol/L (3.5-5.1)
[2021-08-30 06:29] LABS: BUN/Creatinine Ratio 27.7; Bilirubin, Total 0.3 mg/dL (0.2-1.0); Magnesium 2.3 mg/dL (1.6-2.6); Phosphorus 3.8 mg/dL (2.5-4.90); Total Protein 5.7 g/dL (6.4-8.2)
[2021-08-30] MEDS: FUROSEMIDE 20 MG/2 ML VIAL IV SCH ×2 (06:34→17:22)
[2021-08-30] MEDS: METOCLOPRAMIDE HCL 5MG/ml INJ 2ml VIAL IV SCH ×3 (06:35→21:12)
[2021-08-30] MEDS: SUCRALFATE 1 GM/10 ML ORAL SUSP PO SCH ×4 (06:35→21:12)
[2021-08-30 08:22] VITALS: BP 132/64
[2021-08-30] MEDS: cefTRIAXone 1GM/50ML D5W 50 ML IV SCH (08:41)
[2021-08-30] MEDS: SODIUM CHLOR 0.9% PF (SALINE LOCK) 10ML VIAL/SYR IV SCH ×2 (08:42→21:12)
[2021-08-30] MEDS: PROPRANOLOL HCL 20 MG TAB PO SCH ×2 (08:42→22:00)
[2021-08-30] MEDS: SPIRONOLACTONE 25 MG TAB PO SCH (08:42)
[2021-08-30] MEDS: PANTOPRAZOLE 40 MG TAB PO SCH ×2 (08:42→21:13)
[2021-08-30] MEDS: HYDROmorphone HCL 2 MG/ML VL/or syr IV PRN ×5 (09:28→21:37)
[2021-08-30 12:58] VITALS: BP 111/70
[2021-08-30 17:00] VITALS: BP 112/54
[2021-08-30] MEDS ORDERED: TPN PER PHARMACY IV NR ×8 (20:00)
[2021-08-30 22:00] VITALS: BP 101/57
[2021-08-31] MEDS: HYDROmorphone HCL 2 MG/ML VL/or syr IV PRN ×6 (03:09→20:30)
[2021-08-31 05:07] VITALS: BP 100/56
[2021-08-31] MEDS: InsuLIN REG 1unit/0.01ml Soln (100units/ml) SC SCH ×4 (05:58→17:09)
[2021-08-31] MEDS: ACCU-CHEK COMFORT CURVE STRIP VI SCH ×4 (05:58→17:08)
[2021-08-31] MEDS: FUROSEMIDE 20 MG/2 ML VIAL IV SCH ×2 (05:59→16:17)
[2021-08-31 06:09] LABS: Potassium 3.6 mmol/L (3.5-5.1)
[2021-08-31 06:21] LABS: BUN/Creatinine Ratio 31.7; Magnesium 2.1 mg/dL (1.6-2.6); Phosphorus 2.4 mg/dL (2.5-4.90)
[2021-08-31] MEDS: IPRATROPIUM BROM 0.5 MG/2.5ML INH SOL NEB SCH ×3 (06:51→18:55)
[2021-08-31] MEDS: METOCLOPRAMIDE HCL 5MG/ml INJ 2ml VIAL IV SCH ×3 (06:58→21:20)
[2021-08-31] MEDS: SUCRALFATE 1 GM/10 ML ORAL SUSP PO SCH ×4 (06:59→21:15)
[2021-08-31 09:00] VITALS: BP 113/62
[2021-08-31] MEDS: SODIUM CHLOR 0.9% PF (SALINE LOCK) 10ML VIAL/SYR IV SCH ×2 (09:07→21:20)
[2021-08-31] MEDS: SPIRONOLACTONE 25 MG TAB PO SCH (09:10)
[2021-08-31] MEDS: PROPRANOLOL HCL 20 MG TAB PO SCH ×2 (09:11→21:16)
[2021-08-31] MEDS: PANTOPRAZOLE 40 MG TAB PO SCH ×2 (09:12→21:17)
[2021-08-31 13:00] VITALS: BP 102/58
[2021-08-31] MEDS ORDERED: POTASSIUM PHOSP 22MEQ(15MMOLE) in NS 100 ML IV ONE (13:00)
[2021-08-31] MEDS ORDERED: POTASSIUM PHOSPHATE 22 MEQ in SODIUM CHL 0.9% 100 ML IV ONE (15:00)
[2021-08-31 17:00] VITALS: BP 104/60
[2021-08-31] MEDS ORDERED: LACTULOSE 20Gm/30ML SOLN PO ONE (17:00)
[2021-08-31] MEDS ORDERED: POLYETHYLENE GLYCOL 17 GM PWDR PO ONE ×2 (17:00)
[2021-08-31 20:00] VITALS: BP 127/67
[2021-08-31] MEDS ORDERED: TPN PER PHARMACY IV NR ×9 (20:00)
[2021-08-31] MEDS: ONDANSETRON HCL 4 MG/2 ML VIAL IV PRN (20:29)
[2021-08-31 22:00] VITALS: BP 127/67
[2021-09-01] VITALS (7 sets, daily range): BP systolic 94–115; BP diastolic 49–59
[2021-09-01] MEDS: HYDROmorphone HCL 2 MG/ML VL/or syr IV PRN ×5 (00:03→21:30)
[2021-09-01] MEDS: IPRATROPIUM BROM 0.5 MG/2.5ML INH SOL NEB SCH ×4 (00:20→18:03)
[2021-09-01] MEDS: ACCU-CHEK COMFORT CURVE STRIP VI SCH ×4 (00:22→18:03)
[2021-09-01] MEDS: InsuLIN REG 1unit/0.01ml Soln (100units/ml) SC SCH ×4 (00:27→18:00)
[2021-09-01] MEDS: ONDANSETRON HCL 4 MG/2 ML VIAL IV PRN ×3 (03:45→21:29)
[2021-09-01 06:12] LABS: Calcium 8.1 mg/dL (8.5-10.1)
[2021-09-01 06:14] LABS: Albumin 2.1 g/dL (3.4-5.0); BUN/Creatinine Ratio 34.5; Magnesium 2.3 mg/dL (1.6-2.6)
[2021-09-01 06:17] LABS: Bilirubin, Total 0.4 mg/dL (0.2-1.0); Phosphorus 2.5 mg/dL (2.5-4.90); Total Protein 5.9 g/dL (6.4-8.2)
[2021-09-01] MEDS: METOCLOPRAMIDE HCL 5MG/ml INJ 2ml VIAL IV SCH ×3 (06:51→21:28)
[2021-09-01] MEDS: SUCRALFATE 1 GM/10 ML ORAL SUSP PO SCH ×4 (06:52→21:29)
[2021-09-01] MEDS: FUROSEMIDE 20 MG/2 ML VIAL IV SCH ×2 (06:53→17:46)
[2021-09-01] MEDS: SODIUM CHLOR 0.9% PF (SALINE LOCK) 10ML VIAL/SYR IV SCH ×2 (09:01→21:31)
[2021-09-01] MEDS: SPIRONOLACTONE 25 MG TAB PO SCH (09:02)
[2021-09-01] MEDS: PROPRANOLOL HCL 20 MG TAB PO SCH ×2 (09:02→22:00)
[2021-09-01] MEDS: PANTOPRAZOLE 40 MG TAB PO SCH ×2 (09:02→21:29)
[2021-09-01] MEDS ORDERED: TPN PER PHARMACY IV NR ×10 (20:00)
[2021-09-02] MEDS: IPRATROPIUM BROM 0.5 MG/2.5ML INH SOL NEB SCH ×4 (00:12→19:21)
[2021-09-02] MEDS: ACCU-CHEK COMFORT CURVE STRIP VI SCH ×5 (00:28→23:50)
[2021-09-02] MEDS: HYDROmorphone HCL 2 MG/ML VL/or syr IV PRN ×2 (03:13→10:55)
[2021-09-02] MEDS: ONDANSETRON HCL 4 MG/2 ML VIAL IV PRN (03:14)
[2021-09-02 05:00] VITALS: BP 117/66
[2021-09-02 05:25] LABS: Basophils # (auto) 0.2 10 ^3/uL (0-0.2); Basophils % (auto) 3.5 % (0.0-2.0); Eosinophils # (auto) 0.3 10 ^3/uL (0-0.8); Eosinophils % (auto) 5.1 % (0.0-7.0); Hematocrit 29.8 % (36.0-46.0); Hemoglobin 9.8 g/dL (12.2-16.2); Lymphocytes # (auto) 0.8 10 ^3/uL (0.4-5.4); Lymphocytes % (auto) 12.8 % (10.0-50.0); Mean Corpuscular Hemoglobin 28.1 pg (28.0-32.0); Mean Corpuscular Hgb Conc. 32.9 g/dL (32.0-36.0); Mean Corpuscular Volume 85.3 fL (80.0-100.0); Monocytes # (auto) 0.8 10 ^3/uL (0-1.3); Monocytes % (auto) 13.2 % (0.0-12.0); Neutrophils # (auto) 3.9 10 ^3/uL (1.6-8.6); Neutrophils % (auto) 65.4 % (37.0-80.0); Nucleated Red Blood Cells % 0.1 %; Red Cell Distribution Width 17.4 % (11.8-14.3)
[2021-09-02 05:41] LABS: Albumin 1.9 g/dL (3.4-5.0); Magnesium 2.4 mg/dL (1.6-2.6); Potassium 3.8 mmol/L (3.5-5.1)
[2021-09-02 05:44] LABS: BUN/Creatinine Ratio 35.1; Bilirubin, Total 0.4 mg/dL (0.2-1.0); Phosphorus 3.2 mg/dL (2.5-4.90); Total Protein 5.8 g/dL (6.4-8.2)
[2021-09-02] MEDS: InsuLIN REG 1unit/0.01ml Soln (100units/ml) SC SCH ×4 (06:00→18:00)
[2021-09-02] MEDS: FUROSEMIDE 20 MG/2 ML VIAL IV SCH ×2 (06:16→18:00)
[2021-09-02] MEDS: METOCLOPRAMIDE HCL 5MG/ml INJ 2ml VIAL IV SCH ×3 (06:16→21:19)
[2021-09-02] MEDS: SUCRALFATE 1 GM/10 ML ORAL SUSP PO SCH ×4 (06:17→21:19)
[2021-09-02 09:00] VITALS: BP 113/66
[2021-09-02] MEDS: SODIUM CHLOR 0.9% PF (SALINE LOCK) 10ML VIAL/SYR IV SCH ×2 (10:00→21:19)
[2021-09-02] MEDS: SPIRONOLACTONE 25 MG TAB PO SCH (10:54)
[2021-09-02] MEDS: PROPRANOLOL HCL 20 MG TAB PO SCH ×2 (10:55→21:19)
[2021-09-02] MEDS: PANTOPRAZOLE 40 MG TAB PO SCH ×2 (10:55→21:19)
[2021-09-02 12:53] VITALS: BP 120/62
[2021-09-02] MEDS: LACTULOSE 20Gm/30ML SOLN PO PRN (14:25)
[2021-09-02] MEDS: oxyCODONE ER 20 MG TAB PO PRN ×2 (14:26→23:50)
[2021-09-02 17:00] VITALS: BP 90/55
[2021-09-02] MEDS ORDERED: TPN PER PHARMACY IV NR ×9 (20:00)
[2021-09-02 21:38] VITALS: BP 100/61
[2021-09-03] MEDS: InsuLIN REG 1unit/0.01ml Soln (100units/ml) SC SCH ×4 (00:10→16:26)
[2021-09-03] MEDS: IPRATROPIUM BROM 0.5 MG/2.5ML INH SOL NEB SCH ×5 (00:31→23:34)
[2021-09-03 04:38] VITALS: BP 100/69
[2021-09-03 05:53] LABS: BUN/Creatinine Ratio 36.8; Calcium 8.1 mg/dL (8.5-10.1); Magnesium 2.2 mg/dL (1.6-2.6); Phosphorus 3.9 mg/dL (2.5-4.90)
[2021-09-03] MEDS: SUCRALFATE 1 GM/10 ML ORAL SUSP PO SCH ×4 (06:13→21:42)
[2021-09-03] MEDS: ACCU-CHEK COMFORT CURVE STRIP VI SCH ×3 (06:13→16:27)
[2021-09-03] MEDS: FUROSEMIDE 20 MG/2 ML VIAL IV SCH ×2 (06:14→16:22)
[2021-09-03] MEDS: METOCLOPRAMIDE HCL 5MG/ml INJ 2ml VIAL IV SCH ×3 (06:14→21:42)
[2021-09-03 08:00] VITALS: BP 111/66
[2021-09-03 08:26] LABS: Albumin 2.1 g/dL (3.4-5.0)
[2021-09-03 08:29] LABS: Bilirubin, Total 0.4 mg/dL (0.2-1.0)
[2021-09-03] MEDS: PANTOPRAZOLE 40 MG TAB PO SCH ×2 (09:56→21:41)
[2021-09-03] MEDS: PROPRANOLOL HCL 20 MG TAB PO SCH ×2 (09:57→21:42)
[2021-09-03] MEDS: SPIRONOLACTONE 25 MG TAB PO SCH (09:58)
[2021-09-03] MEDS: oxyCODONE ER 20 MG TAB PO PRN ×2 (11:01→22:06)
[2021-09-03 12:00] VITALS: BP 122/57
[2021-09-03] MEDS: SODIUM CHLOR 0.9% PF (SALINE LOCK) 10ML VIAL/SYR IV SCH ×2 (12:14→21:41)
[2021-09-03 16:00] VITALS: BP 108/51
[2021-09-03] MEDS ORDERED: TPN PER PHARMACY IV NR ×10 (20:00)
[2021-09-03 21:09] VITALS: BP 96/58
[2021-09-03] MEDS: ONDANSETRON HCL 4 MG/2 ML VIAL IV PRN (21:38)
[2021-09-04] MEDS: InsuLIN REG 1unit/0.01ml Soln (100units/ml) SC SCH ×3 (00:48→12:00)
[2021-09-04] MEDS: ACCU-CHEK COMFORT CURVE STRIP VI SCH ×3 (00:48→12:00)
[2021-09-04 04:39] VITALS: BP 111/63
[2021-09-04] MEDS: ONDANSETRON HCL 4 MG/2 ML VIAL IV PRN (05:35)
[2021-09-04] MEDS: METOCLOPRAMIDE HCL 5MG/ml INJ 2ml VIAL IV SCH ×2 (05:53→14:20)
[2021-09-04] MEDS: FUROSEMIDE 20 MG/2 ML VIAL IV SCH (05:53)
[2021-09-04] MEDS: SUCRALFATE 1 GM/10 ML ORAL SUSP PO SCH ×2 (06:04→11:11)
[2021-09-04 06:22] LABS: Basophils # (auto) 0.1 10 ^3/uL (0-0.2); Basophils % (auto) 0.9 % (0.0-2.0); Eosinophils # (auto) 0.2 10 ^3/uL (0-0.8); Hematocrit 29.6 % (36.0-46.0); Lymphocytes # (auto) 0.7 10 ^3/uL (0.4-5.4); Lymphocytes % (auto) 12.4 % (10.0-50.0); Mean Corpuscular Hemoglobin 27.9 pg (28.0-32.0); Mean Corpuscular Hgb Conc. 33.9 g/dL (32.0-36.0); Mean Corpuscular Volume 82.5 fL (80.0-100.0); Monocytes % (auto) 16.2 % (0.0-12.0); Neutrophils % (auto) 66.5 % (37.0-80.0); Nucleated Red Blood Cells % 0.1 %; Red Blood Cells 3.59 10^6/uL (4.0-5.20); Red Cell Distribution Width 17.3 % (11.8-14.3)
[2021-09-04 06:32] LABS: Potassium 4.6 mmol/L (3.5-5.1)
[2021-09-04 06:43] LABS: Albumin 2.3 g/dL (3.4-5.0); BUN/Creatinine Ratio 43.2; Bilirubin, Total 0.4 mg/dL (0.2-1.0); Magnesium 2.5 mg/dL (1.6-2.6); Phosphorus 3.1 mg/dL (2.5-4.90); Total Protein 6.6 g/dL (6.4-8.2)
[2021-09-04] MEDS: IPRATROPIUM BROM 0.5 MG/2.5ML INH SOL NEB SCH ×3 (06:44→18:16)
[2021-09-04 08:00] VITALS: BP 106/63
[2021-09-04] MEDS: SPIRONOLACTONE 25 MG TAB PO SCH (08:37)
[2021-09-04] MEDS: PROPRANOLOL HCL 20 MG TAB PO SCH (08:37)
[2021-09-04] MEDS: PANTOPRAZOLE 40 MG TAB PO SCH (08:37)
[2021-09-04] MEDS: SODIUM CHLOR 0.9% PF (SALINE LOCK) 10ML VIAL/SYR IV SCH (08:37)
[2021-09-04] MEDS: LACTULOSE 20Gm/30ML SOLN PO PRN ×2 (08:37→13:15)
[2021-09-04 09:53] VITALS: BP 106/63
[2021-09-04] MEDS: oxyCODONE ER 20 MG TAB PO PRN (09:53)
[2021-09-04] MEDS ORDERED: NUTR-709 OR (11:11)
[2021-09-04] MEDS ORDERED: METO-281 PO (11:11)
[2021-09-04] MEDS ORDERED: PANT40T PO (11:13)
[2021-09-04] MEDS ORDERED: SUCR1SUS10 PO (11:13)
[2021-09-04 12:00] VITALS: BP 110/59
[2021-09-04 12:22] VITALS: BP 110/59
[2021-09-04] MEDS ORDERED: POLYETHYLENE GLYCOL 17 GM PWDR PO ONE (14:15)
[2021-09-04] MEDS ORDERED: FLEET ENEMA(ADULT) 135 ML PR ONE (14:30)
[2021-09-04 16:00] VITALS: BP 108/70
[2021-09-04] MEDS ORDERED: TPN PER PHARMACY IV NR ×9 (20:00)
== END 2021-09-04 18:20 | disposition home or self-care (01) | DRG 843 ==
LOC: ER 10:00 → TELE 14:39 → TELE-EAST 21:01
PROVIDERS: ADMIT Registered Nurse; ATTEND Internal Medicine
PROC: 0DJ08ZZ Inspection of Upper Intestinal Tract, Via Natural or Artificial Opening Endoscopic (ICD-10-PCS; principal; 2021-08-24 13:25)
PROC: 0W9G3ZZ Drainage of Peritoneal Cavity, Percutaneous Approach (ICD-10-PCS; 2021-08-25)
PROC: 05H933Z Insertion of Infusion Device into Right Brachial Vein, Percutaneous Approach (ICD-10-PCS; 2021-08-28)
PROC: B54MZZA Ultrasonography of Right Upper Extremity Veins, Guidance (ICD-10-PCS; 2021-08-28)
PROC: 0W9G3ZZ Drainage of Peritoneal Cavity, Percutaneous Approach (ICD-10-PCS; 2021-08-29)
DX: C80.1 Malignant (primary) neoplasm, unspecified (principal); I50.31 Acute diastolic (congestive) heart failure; J96.01 Acute respiratory failure with hypoxia; E43 Unspecified severe protein-calorie malnutrition; R18.8 Other ascites; J98.11 Atelectasis; I13.0 Hypertensive heart and chronic kidney disease with heart failure and stage 1 through stage 4 chronic kidney disease, or unspecified chronic kidney disease; K74.3 Primary biliary cirrhosis; C78.6 Secondary malignant neoplasm of retroperitoneum and peritoneum; K29.70 Gastritis, unspecified, without bleeding; K20.90 Esophagitis, unspecified without bleeding; E87.6 Hypokalemia; R80.9 Proteinuria, unspecified; E88.09 Other disorders of plasma-protein metabolism, not elsewhere classified; E03.9 Hypothyroidism, unspecified; N18.2 Chronic kidney disease, stage 2 (mild); F41.9 Anxiety disorder, unspecified; Z20.822 Contact with and (suspected) exposure to COVID-19; B19.20 Unspecified viral hepatitis C without hepatic coma; K31.84 Gastroparesis; Z80.0 Family history of malignant neoplasm of digestive organs; Z85.43 Personal history of malignant neoplasm of ovary; Z82.5 Family history of asthma and other chronic lower respiratory diseases; Z90.49 Acquired absence of other specified parts of digestive tract; Z82.3 Family history of stroke; Z82.49 Family history of ischemic heart disease and other diseases of the circulatory system; Z90.710 Acquired absence of both cervix and uterus; Z80.3 Family history of malignant neoplasm of breast; Z88.8 Allergy status to other drugs, medicaments and biological substances; Z88.1 Allergy status to other antibiotic agents
CPT/HCPCS: 36415; 36569; 43235; 71045; 74176; 74177; 76705; 76830; 76856; 76942; 78264; 80048; 80053; 80061; 80069; 81001; 82040; 82105; 82150; 82247; 82378; 82962; 83615; 83690; 83735; 83880; 83986; 84075; 84100; 84132; 84155; 84450; 84460; 84478; 85025; 85379; 85610; 85652; 85730; 86141; 86300; 86301; 86304; 86704; 86706; 86708; 86803; 87205; 87340; 89051; 93005; 93306; 93970; 94640; 96361; 96374; 96375; 97110; 97116; 97163; 97530; G0378; J0696; J1335; J1815; J2250; J2405; J3480; J3490; J7131; P9047

== ENCOUNTER 2021-09-15 18:17 | Inpatient (IN) | payer MEDICARE, MEDICAID ==
[~2021-09-15] VITALS: Ht 149.9 cm; Wt 50.3 kg
[~2021-09-15 18:17] MED LIST changes: +ASCO100076 PO; +BIOT1CAP OR; +MET25T PO; +METO-281 PO; +MULT-683 OR; +NUTR-709 OR; +PANT40T PO; +SUCR1SUS10 PO
[2021-09-15 18:55] LABS: Basophils # (auto) 0 10 ^3/uL (0-0.2); Basophils % (auto) 0.8 % (0.0-2.0); Eosinophils # (auto) 0.3 10 ^3/uL (0-0.8); Eosinophils % (auto) 4.8 % (0.0-7.0); Hematocrit 27.4 % (36.0-46.0); Lymphocytes # (auto) 0.5 10 ^3/uL (0.4-5.4); Lymphocytes % (auto) 8.3 % (10.0-50.0); Mean Corpuscular Hemoglobin 27.3 pg (28.0-32.0); Mean Corpuscular Hgb Conc. 32.9 g/dL (32.0-36.0); Mean Corpuscular Volume 82.8 fL (80.0-100.0); Monocytes # (auto) 0.8 10 ^3/uL (0-1.3); Monocytes % (auto) 13.2 % (0.0-12.0); Neutrophils # (auto) 4.2 10 ^3/uL (1.6-8.6); Neutrophils % (auto) 72.9 % (37.0-80.0); Nucleated Red Blood Cells % 0.1 %; Red Blood Cells 3.31 10^6/uL (4.0-5.20); Red Cell Distribution Width 17.9 % (11.8-14.3); White Blood Cell 5.7 10^3/uL (4.4-10.8)
[2021-09-15 19:10] LABS: INR 1.16 (0.9-1.15)
[2021-09-15 19:13] LABS: Albumin 2.4 g/dL (3.4-5.0); BUN/Creatinine Ratio 53.5; Calcium 8.9 mg/dL (8.5-10.1); Potassium 3.3 mmol/L (3.5-5.1)
[2021-09-15 19:15] LABS: Bilirubin, Total 0.6 mg/dL (0.2-1.0); Total Protein 6.6 g/dL (6.4-8.2)
[2021-09-15] MEDS ORDERED: SODIUM CHLORIDE 0.9% 500 ML IV ONE (20:00)
[2021-09-15] MEDS ORDERED: POTASSIUM CHL 20 Meq TABLET PO ONE (21:45)
[2021-09-15] MEDS ORDERED: MORPHINE SULFATE INJ 2 MG/ml SYRG IV PRN (21:45)
[2021-09-15] MEDS ORDERED: NITROGLYCERIN 0.4 MG SL TAB SL PRN (21:45)
[2021-09-15] MEDS ORDERED: ONDANSETRON HCL 4 MG/2 ML VIAL IV PRN (21:45)
[2021-09-15 22:31] LABS: Hematocrit 26.8 % (36.0-46.0)
[2021-09-16 05:24] LABS: Basophils # (auto) 0 10 ^3/uL (0-0.2); Basophils % (auto) 0.9 % (0.0-2.0); Eosinophils # (auto) 0.3 10 ^3/uL (0-0.8); Eosinophils % (auto) 6.4 % (0.0-7.0); Hemoglobin 8.6 g/dL (12.2-16.2); Lymphocytes # (auto) 0.7 10 ^3/uL (0.4-5.4); Lymphocytes % (auto) 13.1 % (10.0-50.0); Mean Corpuscular Hemoglobin 27.4 pg (28.0-32.0); Mean Corpuscular Hgb Conc. 33.2 g/dL (32.0-36.0); Mean Corpuscular Volume 82.7 fL (80.0-100.0); Monocytes # (auto) 0.6 10 ^3/uL (0-1.3); Monocytes % (auto) 11.5 % (0.0-12.0); Neutrophils # (auto) 3.6 10 ^3/uL (1.6-8.6); Neutrophils % (auto) 68.1 % (37.0-80.0); Nucleated Red Blood Cells % 0.1 %; Red Blood Cells 3.14 10^6/uL (4.0-5.20); Red Cell Distribution Width 17.8 % (11.8-14.3); White Blood Cell 5.2 10^3/uL (4.4-10.8)
[2021-09-16 05:41] LABS: Albumin 2.2 g/dL (3.4-5.0); BUN/Creatinine Ratio 58.4; Calcium 8.5 mg/dL (8.5-10.1); Potassium 3.7 mmol/L (3.5-5.1)
[2021-09-16 05:44] LABS: Bilirubin, Total 0.7 mg/dL (0.2-1.0)
[2021-09-16] MEDS: LACTULOSE 20Gm/30ML SOLN PO SCH ×3 (06:37→22:33)
[2021-09-16] MEDS ORDERED: HYDROcodone-ACET 5/325MG TAB PO ONE (07:30)
[2021-09-16] MEDS ORDERED: fentaNYL CITRATE 100 MCG/2 ML VL IV ONE (09:30)
[2021-09-16] MEDS: URSODIOL 300 MG CAP PO SCH ×2 (10:00→23:00)
[2021-09-16] MEDS: MEMANTINE HCL 5 MG TAB PO SCH (10:00)
[2021-09-16] MEDS: FUROSEMIDE 40 MG TAB PO SCH (10:00)
[2021-09-16] MEDS: PANTOPRAZOLE 40 MG/10 ML VIAL INJ IV SCH ×2 (10:14→22:33)
[2021-09-16] MEDS: oxyCODONE ER 10 MG TAB PO SCH ×2 (13:01→21:47)
[2021-09-17] MEDS ORDERED: FURO40TA4 PO (01:05)
[2021-09-17] MEDS ORDERED: LACT10PA2 PO (01:06)
[2021-09-17] MEDS ORDERED: POTA10TA51 PO (01:08)
[2021-09-17] MEDS ORDERED: TORS20TA20 PO (01:08)
[2021-09-17] MEDS ORDERED: OXYC30TA77 PO (01:14)
[2021-09-17] MEDS ORDERED: KETOROLAC TROMETH 30 MG/ML 1ML VIAL IV ONE (02:45)
[2021-09-17 04:43] VITALS: BP 116/52
[2021-09-17] MEDS ORDERED: HYDROcodone-ACET 7.5/325MG TAB PO ONE (06:00)
[2021-09-17 09:00] VITALS: BP 105/51
[2021-09-17] MEDS ORDERED: oxyCODONE ER 10 MG TAB PO SCH (09:00)
[2021-09-17] MEDS: PANTOPRAZOLE 40 MG/10 ML VIAL INJ IV SCH ×2 (09:56→21:59)
[2021-09-17] MEDS: LACTULOSE 20Gm/30ML SOLN PO SCH ×2 (09:56→22:00)
[2021-09-17] MEDS: MEMANTINE HCL 5 MG TAB PO SCH (09:58)
[2021-09-17] MEDS: URSODIOL 300 MG CAP PO SCH ×2 (09:58→22:00)
[2021-09-17] MEDS: oxyCODONE ER 10 MG TAB PO SCH ×2 (09:58→21:16)
[2021-09-17] MEDS: FUROSEMIDE 40 MG TAB PO SCH (10:06)
[2021-09-17 13:00] VITALS: BP 104/54
[2021-09-17] MEDS ORDERED: GOLYTELY 4L KIT PO ONE (13:00)
[2021-09-17] MEDS: oxyCODONE HCL 5MG TAB PO PRN (14:16)
[2021-09-17 17:00] VITALS: BP 97/58
[2021-09-17] MEDS: ALBUTEROL SULF 2.5 MG/0.5ML(0.5%) NEB SOLN NEB PRN (21:30)
[2021-09-17 22:23] LABS: Hematocrit 28.5 % (36.0-46.0)
[2021-09-17 23:59] VITALS: BP 108/66
[2021-09-18] VITALS (13 sets, daily range): BP systolic 87–106; BP diastolic 37–59
[2021-09-18] MEDS: oxyCODONE HCL 5MG TAB PO PRN ×2 (05:36→18:01)
[2021-09-18 05:51] LABS: White Blood Cell 17.5 10^3/uL (4.4-10.8)
[2021-09-18 05:52] LABS: Hematocrit 25.7 % (36.0-46.0); Hemoglobin 8.3 g/dL (12.2-16.2); Mean Corpuscular Hemoglobin 26.7 pg (28.0-32.0); Mean Corpuscular Hgb Conc. 32.2 g/dL (32.0-36.0); Mean Corpuscular Volume 82.8 fL (80.0-100.0); Red Cell Distribution Width 17.8 % (11.8-14.3)
[2021-09-18 05:56] LABS: Potassium 3.2 mmol/L (3.5-5.1)
[2021-09-18 06:00] LABS: Calcium 8.2 mg/dL (8.5-10.1)
[2021-09-18 06:05] LABS: Basophils % (manual) 0 (0.0-2.0); Blast Cells 0; Eosinophils % (manual) 0 (0-7); Metamyelocytes % 0; Myelocytes % 0; Promyelocytes % 0; Reactive Lymphocytes 0
[2021-09-18] MEDS ORDERED: POTASSIUM CHL 20 Meq TABLET PO ONE (09:00)
[2021-09-18] MEDS ORDERED: SODIUM CHLORIDE 0.9% 500 ML IV ONE (09:00)
[2021-09-18] MEDS: FUROSEMIDE 40 MG TAB PO SCH (10:00)
[2021-09-18] MEDS: LACTULOSE 20Gm/30ML SOLN PO SCH ×2 (10:00→22:08)
[2021-09-18] MEDS: oxyCODONE ER 10 MG TAB PO SCH ×2 (10:00→22:00)
[2021-09-18] MEDS: URSODIOL 300 MG CAP PO SCH ×2 (10:00→22:09)
[2021-09-18 12:00] LABS: Band Neutrophils % (manual) 4; Lymphocytes % (manual) 5 (10.0-50.0); Monocytes % (manual) 3 (0-12)
[2021-09-18] MEDS: PANTOPRAZOLE 40 MG/10 ML VIAL INJ IV SCH ×2 (12:45→22:08)
[2021-09-18] MEDS: MEMANTINE HCL 5 MG TAB PO SCH (12:45)
[2021-09-18] MEDS: ALBUTEROL SULF 2.5 MG/0.5ML(0.5%) NEB SOLN NEB PRN (15:08)
[2021-09-18] MEDS: SODIUM CHLORIDE 0.9% 1,000 ML IV SCH (16:00)
[2021-09-18 16:46] LABS: Basophils # (auto) 0.2 10 ^3/uL (0-0.2); Eosinophils # (auto) 0 10 ^3/uL (0-0.8); Hematocrit 21.7 % (36.0-46.0); Lymphocytes # (auto) 0.3 10 ^3/uL (0.4-5.4); Monocytes # (auto) 0.9 10 ^3/uL (0-1.3); Red Blood Cells 2.58 10^6/uL (4.0-5.20)
[2021-09-18 16:48] LABS: Basophils % (auto) 1.1 % (0.0-2.0); Eosinophils % (auto) 0.1 % (0.0-7.0); Lymphocytes % (auto) 1.8 % (10.0-50.0); Mean Corpuscular Hemoglobin 26.1 pg (28.0-32.0); Mean Corpuscular Volume 84.1 fL (80.0-100.0); Neutrophils # (auto) 16.9 10 ^3/uL (1.6-8.6); White Blood Cell 18.4 10^3/uL (4.4-10.8)
[2021-09-18 17:03] LABS: Hemoglobin 6.7 g/dL (12.2-16.2)
[2021-09-19 01:56] VITALS: BP 98/60
[2021-09-19] MEDS: ALBUTEROL SULF 2.5 MG/0.5ML(0.5%) NEB SOLN NEB PRN ×2 (01:59→15:04)
[2021-09-19] MEDS: SODIUM CHLORIDE 0.9% 1,000 ML IV SCH ×2 (02:00→12:00)
[2021-09-19 05:00] VITALS: BP 89/50
[2021-09-19] MEDS: oxyCODONE HCL 5MG TAB PO PRN ×2 (05:15→10:09)
[2021-09-19 05:53] LABS: Basophils # (auto) 0.1 10 ^3/uL (0-0.2); Basophils % (auto) 0.4 % (0.0-2.0); Eosinophils # (auto) 0.1 10 ^3/uL (0-0.8); Eosinophils % (auto) 1.2 % (0.0-7.0); Hematocrit 29.9 % (36.0-46.0); Hemoglobin 9.7 g/dL (12.2-16.2); Lymphocytes # (auto) 0.5 10 ^3/uL (0.4-5.4); Lymphocytes % (auto) 4.1 % (10.0-50.0); Mean Corpuscular Hemoglobin 27.3 pg (28.0-32.0); Mean Corpuscular Hgb Conc. 32.5 g/dL (32.0-36.0); Mean Corpuscular Volume 84.2 fL (80.0-100.0); Monocytes # (auto) 0.9 10 ^3/uL (0-1.3); Monocytes % (auto) 6.8 % (0.0-12.0); Neutrophils # (auto) 10.9 10 ^3/uL (1.6-8.6); Neutrophils % (auto) 87.5 % (37.0-80.0); Nucleated Red Blood Cells % 0.1 %; Red Blood Cells 3.55 10^6/uL (4.0-5.20); White Blood Cell 12.5 10^3/uL (4.4-10.8)
[2021-09-19 06:18] LABS: BUN/Creatinine Ratio 36.8; Calcium 8.1 mg/dL (8.5-10.1); Potassium 3.7 mmol/L (3.5-5.1)
[2021-09-19 09:00] VITALS: BP 104/52
[2021-09-19] MEDS: LACTULOSE 20Gm/30ML SOLN PO SCH (09:50)
[2021-09-19] MEDS: MEMANTINE HCL 5 MG TAB PO SCH (09:51)
[2021-09-19] MEDS: PANTOPRAZOLE 40 MG/10 ML VIAL INJ IV SCH (09:51)
[2021-09-19] MEDS: URSODIOL 300 MG CAP PO SCH (09:52)
[2021-09-19] MEDS: FUROSEMIDE 40 MG TAB PO SCH (09:56)
[2021-09-19] MEDS: oxyCODONE ER 10 MG TAB PO SCH (09:57)
[2021-09-19 12:53] VITALS: BP 146/56
[2021-09-19 13:00] VITALS: BP 146/56
[2021-09-19] MEDS ORDERED: LORazepam 0.5 MG TAB PO ONE (14:15)
== END 2021-09-19 14:43 | disposition hospice, home (50) | DRG 378 ==
LOC: ER 18:17 → EDBD 18:17 → TELE 21:41 → TELE-EAST 09-16 22:58
PROVIDERS: ADMIT Nurse Practitioner; ATTEND Internal Medicine
PROC: 30233N1 Transfusion of Nonautologous Red Blood Cells into Peripheral Vein, Percutaneous Approach (ICD-10-PCS; principal; 2021-09-18)
DX: K92.2 Gastrointestinal hemorrhage, unspecified (principal); C78.6 Secondary malignant neoplasm of retroperitoneum and peritoneum; D68.9 Coagulation defect, unspecified; E44.0 Moderate protein-calorie malnutrition; K72.90 Hepatic failure, unspecified without coma; I11.0 Hypertensive heart disease with heart failure; J44.9 Chronic obstructive pulmonary disease, unspecified; K74.60 Unspecified cirrhosis of liver; E03.9 Hypothyroidism, unspecified; D64.9 Anemia, unspecified; M19.90 Unspecified osteoarthritis, unspecified site; Z20.822 Contact with and (suspected) exposure to COVID-19; Z51.5 Encounter for palliative care; Z80.3 Family history of malignant neoplasm of breast; Z82.3 Family history of stroke; Z82.49 Family history of ischemic heart disease and other diseases of the circulatory system; Z90.710 Acquired absence of both cervix and uterus; Z88.6 Allergy status to analgesic agent; Z88.5 Allergy status to narcotic agent; Z88.8 Allergy status to other drugs, medicaments and biological substances; Z90.49 Acquired absence of other specified parts of digestive tract; Z68.22 Body mass index [BMI] 22.0-22.9, adult; I50.9 Heart failure, unspecified
CPT/HCPCS: 36415; 70450; 71045; 76700; 80048; 80053; 82140; 82270; 83690; 84484; 85007; 85014; 85018; 85025; 85027; 85610; 86850; 86900; 86901; 86920; 93005; 93970; 94640; 96360; C9113; G0378; J1885; J2405